=== PATIENT | female | born 1980 | race Caucasian/White ===

== ENCOUNTER 2016-04-25 07:37 | Emergency (ER) | payer BC, OTHER ==
[2016-04-25] MEDS ORDERED: NORMAL SALINE 1000 ML 1,000 ML IV ONE (08:48)
[2016-04-25 08:50] LABS: APPEARANCE,URINE SLIGHTLY-CLOUDY; BILIRUBIN,URINE NEGATIVE (NEGATIVE); GLUCOSE, URINE NEGATIVE (NEGATIVE); KETONES,URINE TRACE mg/dL (NEGATIVE); LEUKOCYTE ESTERASE,URINE NEGATIVE (NEGATIVE); NITRITE,URINE NEGATIVE (NEGATIVE); PROTEIN,URINE NEGATIVE (NEGATIVE); URINE SPECIFIC GRAVITY 1.015; UROBILINOGEN,URINE NEGATIVE mg/dL (<2.0)
[2016-04-25 09:06] LABS: ABSOLUTE BASOPHILS # (AUTO) 0.1 10^3/uL (0.0-0.2); ABSOLUTE EOSINOPHILS # (AUTO) 0.2 10^3/uL (0.0-0.6); ABSOLUTE MONOCYTES (AUTO) 0.5 10^3/uL (0.1-1.4); ABSOLUTE NEUT (AUTO) 6.7 10^3/uL (1.7-8.2); BASOPHILS % (AUTO) 0.6 % (0-2); EOSINOPHILS % (AUTO) 2.5 % (0-6); HEMATOCRIT 43.3 % (36.0-47.0); HEMOGLOBIN 14.7 g/dL (12.0-15.5); HGB HCT DIFFERENCE 0.8; LYMPHOCYTES % (AUTO) 20.7 % (13-45); MEAN CORPUSCULAR HEMOGLOBIN 29.4 pg (27.0-33.4); MEAN CORPUSCULAR HGB CONC 34.1 g/dL (32.0-36.0); MEAN CORPUSCULAR VOLUME 87 fl (80-97); MONOCYTES % (AUTO) 5.6 % (3-13); RED BLOOD COUNT 5.01 10^6/uL (3.72-5.28); RED CELL DISTRIBUTION WIDTH 14.3 % (11.5-14.0); SEGMENTED NEUTROPHILS % (AUTO) 70.6 % (42-78); WHITE BLOOD COUNT 9.4 10^3/uL (4.0-10.5)
[2016-04-25 09:31] LABS: ALANINE AMINOTRANSFERASE 53 U/L (9-52); ALBUMIN 4.4 g/dL (3.5-5.0); ALKALINE PHOSPHATASE 82 U/L (38-126); ANION GAP 13 (5-19); ASPARTATE AMINO TRANSFERASE 33 U/L (14-36); BILIRUBIN,TOTAL 0.6 mg/dL (0.2-1.3); BLOOD UREA NITROGEN 7 mg/dL (7-20); CALCIUM 9.6 mg/dL (8.4-10.2); CARBON DIOXIDE 23 mmol/L (22-30); CHLORIDE 104 mmol/L (98-107); CREATININE RESULT 0.59 mg/dL (0.52-1.25); GLUCOSE 95 mg/dL (75-110); LIPASE 201.9 U/L (23-300); POTASSIUM 4.2 mmol/L (3.6-5.0); TOTAL PROTEIN 7.5 g/dL (6.3-8.2)
--- NOTE | 2016-04-25 12:15 | ER Document Report ---
ED General - General Chief Complaint: Vag Bleeding, +preg <12wks Stated Complaint: BLEEDING TRAVEL OUTSIDE OF THE [place] IN LAST 30 DAYS: No - HPI Patient complains to provider of: vaginal bleeding Notes: Patient coming in for evaluation of vaginal bleeding. Patient is currently undergoing infertility treatment at [facility]. States that she's had miscarriages in the past. Patient denies any vaginal trauma sexual intercourse or any trauma. Patient states bleeding has gone through proximal 2 pads today. Patient does state that she had is having some abdominal cramping feeling like she is not to start her period. Denies any fevers chills nausea vomiting diarrhea. - Related Data Allergies/Adverse Reactions: diazepam [From Valium] Allergy (Mild, Verified 04/25/16 07:43) morphine [Morphine] Allergy (Unknown, Verified 04/25/16 07:43) naproxen [Naproxen] Allergy (Unknown, Verified 04/25/16 07:43) acetaminophen [From Percocet] Allergy (Verified 04/25/16 07:43) hydromorphone [From Dilaudid] Allergy (Verified 04/25/16 07:43) oxycodone [From Percocet] Allergy (Verified 04/25/16 07:43) Past Medical History - Social History Smoking Status: Never Smoker Chew tobacco use (# tins/day): No Frequency of alcohol use: None Drug Abuse: None Family History: Reviewed & Not Pertinent Patient has suicidal ideation: No Patient has homicidal ideation: No Pulmonary Medical History: Reports: Hx Bronchitis Neurological Medical History: Reports: Hx Migraine Renal/ Medical History: Reports: Hx Ovarian Cysts - Polycystic ovary syndrome. Denies: Hx Peritoneal Dialysis Psychiatric Medical History: Reports: Hx Anxiety, Hx Depression Past Surgical History: Reports: Hx Cholecystectomy, Hx Gynecologic Surgery - D& C x2, laproscopic, Hx Orthopedic Surgery - Arthroscopy right knee - Immunizations Immunizations up to date: Yes Hx Diphtheria, Pertussis, Tetanus Vaccination: Yes - 2005 Review of Systems - Review of Systems Constitutional: No symptoms reported EENT: No symptoms reported Cardiovascular: No symptoms reported Respiratory: No symptoms reported Gastrointestinal: No symptoms reported Genitourinary: No symptoms reported Female Genitourinary: Vaginal bleeding Musculoskeletal: No symptoms reported Skin: No symptoms reported Hematologic/Lymphatic: No symptoms reported Neurological/Psychological: No symptoms reported -: Yes All other systems reviewed and negative Physical Exam - Vital signs Vitals: Temp Pulse Resp BP Pulse Ox 97.5 F 120 H 20 139/91 H 99 04/25/16 07:42 04/25/16 07:42 04/25/16 07:42 04/25/16 07:42 04/25/16 07:42 Interpretation: Normal - General General appearance: Appears well, Alert - HEENT Head: Normocephalic, Atraumatic Eyes: Normal Pupils: PERRL - Respiratory Respiratory status: No respiratory distress Chest status: Nontender Breath sounds: Normal Chest palpation: Normal - Cardiovascular Rhythm: Regular Heart sounds: Normal auscultation Murmur: No - Abdominal Inspection: Normal Distension: No distension Bowel sounds: Normal Tenderness: Nontender Organomegaly: No organomegaly - Back Back: Normal, Nontender - Extremities General upper extremity: Normal inspection, Nontender, Normal color, Normal ROM , Normal temperature General lower extremity: Normal inspection, Nontender, Normal color, Normal ROM , Normal temperature, Normal weight bearing. No: Cristopher's sign - Neurological Neuro grossly intact: Yes Cognition: Normal Orientation: AAOx4 [place] Coma Scale Eye Opening: Spontaneous [place] Coma Scale Verbal: Oriented [place] Coma Scale Motor: Obeys Commands Gavino Coma Scale Total: 15 Speech: Normal Motor strength normal: LUE, RUE, LLE, RLE Sensory: Normal - Psychological Associated symptoms: Normal affect, Normal mood - Skin Skin Temperature: Warm Skin Moisture: Dry Skin Color: Normal Course - Re-evaluation Re-evalutation: 04/25/16 14:28 Does not reveal any signs of an IUP. Also beta-hCG is 111. Patient states that hCG proximal a 4 days ago was 44 or 77. I did discuss with [facility] at [facility] at [facility]. Dr. Ferrara states that that is time patient can be discharged home that she will follow-up with the patient for an earlier follow- up appointment at agreeable later on today. Patient was given Reglan due to being Rh- - Vital Signs Vital signs: Temp Pulse Resp BP Pulse Ox 98.6 F 88 16 120/80 100 04/25/16 12:41 04/25/16 12:41 04/25/16 12:41 04/25/16 12:41 04/25/16 12:41 - Laboratory Result Diagrams: 04/25/16 08:53 04/25/16 08:53 Laboratory results interpreted by me: 04/25/16 04/25/16 04/25/16 08:20 08:53 08:53 RDW 14.3 H ALT 53 H Beta HCG, Quant 111.08 H Urine Ketones TRACE H Urine Blood MODERATE H Discharge - Discharge Clinical Impression: Threatened in early Condition: Good Disposition: HOME, SELF-CARE Instructions: Repeat Blood Test ([facility]), Threatened Miscarriage ([facility]), Rhogam ( [facility]) Additional Instructions: At this time your beta hCG level is 111. I discussed her case with your [facility] clinic in [place]. They will call you to set up a follow-up appointment. Please observe light activity for the next few days. Nothing inside the vagina no toys no sex no tampons Referrals: DEJAN BORDEN MD [Primary Care Provider] - Follow up as needed
[2016-04-25 12:44] VITALS: BP 120/80
== END 2016-04-25 12:43 | disposition home or self-care (01) ==
LOC: ER 07:37
DX: O20.0 Threatened abortion (principal); Z3A.00 Weeks of gestation of pregnancy not specified; Z88.6 Allergy status to analgesic agent
CPT/HCPCS: 99284; 86900; 86901; 36415; 86850; 84702; 83690; 85025; 80053; 81001; 76817; 93976; J2790; J7030

== ENCOUNTER 2016-05-08 16:29 | Emergency (ER) | payer BC, OTHER ==
--- NOTE | 2016-05-08 16:39 | ER Document Report ---
ED Medical Screen (RME) - General Stated Complaint: POSSIBLE ALLERGIC REACTION Notes: Monday she received methotrexate IM for ectopic left jaw pain, left shoulder, nausea, vomiting and pelvic cramping, vaginal bleeding. she had taken benadryl on monday for her symptoms including difficulty breathing which resolved her symptoms. NAD, airway patent, talking normally, nontoxic appearing I have greeted and performed a rapid initial assessment of this patient. A comprehensive ED assessment and evaluation of the patient, analysis of test results and completion of the medical decision making process will be conducted by additional ED providers. TRAVEL OUTSIDE OF THE [place] IN LAST 30 DAYS: No - Related Data Allergies/Adverse Reactions: diazepam [From Valium] Allergy (Mild, Verified 05/03/16 17:36) morphine [Morphine] Allergy (Unknown, Verified 05/03/16 17:36) naproxen [Naproxen] Allergy (Unknown, Verified 05/03/16 17:36) acetaminophen [From Percocet] Allergy (Verified 05/03/16 17:36) hydromorphone [From Dilaudid] Allergy (Verified 05/03/16 17:36) oxycodone [From Percocet] Allergy (Verified 05/03/16 17:36) Past Medical History Pulmonary Medical History: Reports: Hx Bronchitis Neurological Medical History: Reports: Hx Migraine Renal/ Medical History: Reports: Hx Ovarian Cysts - Polycystic ovary syndrome. Denies: Hx Peritoneal Dialysis Psychiatric Medical History: Reports: Hx Anxiety, Hx Depression Past Surgical History: Reports: Hx Cholecystectomy, Hx Gynecologic Surgery - D& C x2, laproscopic, Hx Orthopedic Surgery - Arthroscopy right knee - Immunizations Immunizations up to date: Yes Hx Diphtheria, Pertussis, Tetanus Vaccination: Yes - 2005 Physical Exam - Vital signs Vitals: Temp Pulse Resp BP Pulse Ox 98.0 F 103 H 16 132/90 H 99 05/08/16 16:34 05/08/16 16:34 05/08/16 16:34 05/08/16 16:34 05/08/16 16:34 Course - Vital Signs Vital signs: Temp Pulse Resp BP Pulse Ox 98.0 F 103 H 16 132/90 H 99 05/08/16 16:34 05/08/16 16:34 05/08/16 16:34 05/08/16 16:34 05/08/16 16:34
[2016-05-08 17:04] LABS: ABSOLUTE BASOPHILS # (AUTO) 0.1 10^3/uL (0.0-0.2); ABSOLUTE EOSINOPHILS # (AUTO) 0.2 10^3/uL (0.0-0.6); ABSOLUTE LYMPHOCYTES (AUTO) 3.1 10^3/uL (0.5-4.7); ABSOLUTE MONOCYTES (AUTO) 0.6 10^3/uL (0.1-1.4); ABSOLUTE NEUT (AUTO) 8.9 10^3/uL (1.7-8.2); BASOPHILS % (AUTO) 0.7 % (0-2); EOSINOPHILS % (AUTO) 1.9 % (0-6); HEMATOCRIT 41.4 % (36.0-47.0); HEMOGLOBIN 14.1 g/dL (12.0-15.5); HGB HCT DIFFERENCE 0.9; LYMPHOCYTES % (AUTO) 23.7 % (13-45); MEAN CORPUSCULAR HEMOGLOBIN 29.4 pg (27.0-33.4); MEAN CORPUSCULAR VOLUME 87 fl (80-97); MONOCYTES % (AUTO) 4.6 % (3-13); RED BLOOD COUNT 4.79 10^6/uL (3.72-5.28); SEGMENTED NEUTROPHILS % (AUTO) 69.1 % (42-78); WHITE BLOOD COUNT 12.9 10^3/uL (4.0-10.5)
[2016-05-08 17:09] LABS: APPEARANCE,URINE CLEAR; BILIRUBIN,URINE NEGATIVE (NEGATIVE); GLUCOSE, URINE NEGATIVE (NEGATIVE); KETONES,URINE NEGATIVE (NEGATIVE); LEUKOCYTE ESTERASE,URINE NEGATIVE (NEGATIVE); NITRITE,URINE NEGATIVE (NEGATIVE); PROTEIN,URINE NEGATIVE (NEGATIVE); URINE SPECIFIC GRAVITY 1.006; UROBILINOGEN,URINE NEGATIVE mg/dL (<2.0)
[2016-05-08 17:28] LABS: ALANINE AMINOTRANSFERASE 64 U/L (9-52); ALBUMIN 4.3 g/dL (3.5-5.0); ALKALINE PHOSPHATASE 80 U/L (38-126); ANION GAP 15 (5-19); ASPARTATE AMINO TRANSFERASE 33 U/L (14-36); BILIRUBIN,TOTAL 0.6 mg/dL (0.2-1.3); BLOOD UREA NITROGEN 7 mg/dL (7-20); CALCIUM 9.7 mg/dL (8.4-10.2); CARBON DIOXIDE 28 mmol/L (22-30); CHLORIDE 103 mmol/L (98-107); CREATININE RESULT 0.65 mg/dL (0.52-1.25); GLUCOSE 81 mg/dL (75-110); POTASSIUM 3.7 mmol/L (3.6-5.0); SODIUM 145.5 mmol/L (137-145); TOTAL PROTEIN 7.4 g/dL (6.3-8.2)
[2016-05-08] MEDS ORDERED: ONDANSETRON ODT 4 MG TAB (6 TAB/DSPK) PO PRN (18:36)
--- NOTE | 2016-05-08 18:40 | ER Document Report ---
ED General - General Chief Complaint: Abdominal Cramping Stated Complaint: POSSIBLE ALLERGIC REACTION Notes: Patient is a 35-year-old female recently diagnosed with ectopic and given a dose of methotrexate 3 days ago who presents with nausea, a metallic taste in her mouth, diffuse arthralgias, and intermittent vomiting. States symptoms started approximately 1-2 hours after receiving methotrexate. She states that she has felt a tightness in her throat but has not had shortness of breath. No rash. No syncope. She took Benadryl with moderate improvement of her symptoms. Nothing worsens her symptoms. States she did not have similar symptoms when she received methotrexate for a prior ectopic approximately 12 years ago. Her primary care doctor instructed her to come to the emergency department today when she contacted them regarding her symptoms. TRAVEL OUTSIDE OF THE [place] IN LAST 30 DAYS: No - Related Data Allergies/Adverse Reactions: diazepam [From Valium] Allergy (Mild, Verified 05/03/16 17:36) morphine [Morphine] Allergy (Unknown, Verified 05/03/16 17:36) naproxen [Naproxen] Allergy (Unknown, Verified 05/03/16 17:36) acetaminophen [From Percocet] Allergy (Verified 05/03/16 17:36) hydromorphone [From Dilaudid] Allergy (Verified 05/03/16 17:36) oxycodone [From Percocet] Allergy (Verified 05/03/16 17:36) Past Medical History - General Information source: Patient - Social History Smoking Status: Never Smoker Chew tobacco use (# tins/day): No Frequency of alcohol use: None Drug Abuse: None Lives with: Spouse/Significant other Family History: Reviewed & Not Pertinent Patient has suicidal ideation: No Patient has homicidal ideation: No Pulmonary Medical History: Reports: Hx Bronchitis Neurological Medical History: Reports: Hx Migraine Renal/ Medical History: Reports: Hx Ovarian Cysts - Polycystic ovary syndrome. Denies: Hx Peritoneal Dialysis Psychiatric Medical History: Reports: Hx Anxiety, Hx Depression Past Surgical History: Reports: Hx Cholecystectomy, Hx Gynecologic Surgery - D& C x2, laproscopic, Hx Orthopedic Surgery - Arthroscopy right knee - Immunizations Immunizations up to date: Yes Hx Diphtheria, Pertussis, Tetanus Vaccination: Yes - 2005 Review of Systems - Review of Systems Notes: Constitutional: Negative for fever. HENT: Negative for sore throat. Eyes: Negative for visual changes. Cardiovascular: Negative for chest pain. Respiratory: Negative for shortness of breath. Gastrointestinal: Negative for abdominal pain, positive for vomiting Genitourinary: Negative for dysuria. Musculoskeletal: Negative for back pain. Skin: Negative for rash. Neurological: Negative for headaches, weakness or numbness. 10 point ROS negative except as marked above and in HPI. Physical Exam - Vital signs Vitals: Temp Pulse Resp BP Pulse Ox 98.0 F 103 H 16 132/90 H 99 05/08/16 16:34 05/08/16 16:34 05/08/16 16:34 05/08/16 16:34 05/08/16 16:34 Interpretation: Tachycardic Notes: PHYSICAL EXAMINATION: GENERAL: Well-appearing, well-nourished and in no acute distress. HEAD: Atraumatic, normocephalic. EYES: Pupils equal round and reactive to light, extraocular movements intact, sclera anicteric, conjunctiva are normal. ENT: nares patent, oropharynx clear without exudates. Moist mucous membranes. NECK: Normal range of motion, supple without lymphadenopathy LUNGS: Breath sounds clear to auscultation bilaterally and equal. No wheezes rales or rhonchi. HEART: Regular rate and rhythm without murmurs ABDOMEN: Soft, nontender, normoactive bowel sounds. No guarding, no rebound. No masses appreciated. EXTREMITIES: Normal range of motion, no pitting or edema. No cyanosis. NEUROLOGICAL: No focal neurological deficits. Moves all extremities spontaneously and on command. PSYCH: Normal mood, normal affect. SKIN: Warm, Dry, normal turgor, no rashes or lesions noted. Course - Re-evaluation Re-evalutation: 05/08/16 18:38 Patient presents with multiple symptoms which fit most consistently with a side effects of methotrexate. She does complain of a metallic taste in her mouth which induces significant nausea, consistent with a known side effect of methotrexate. Patient does not have any hives, stridor, wheezing, or respiratory difficulty to suggest an anaphylactic or allergic reaction. Her symptoms have been ongoing for several days. Will prescribe Zofran for nausea and recommend close follow-up. At this time will discharge with return precautions and follow-up recommendations. Verbal discharge instructions given a the bedside and opportunity for questions given. Medication warnings reviewed. Patient is in agreement with this plan and has verbalized understanding of return precautions and the need for primary care follow-up in the next 24-72 hours. - Vital Signs Vital signs: Temp Pulse Resp BP Pulse Ox 97.8 F 104 H 16 123/89 H 98 05/08/16 18:42 05/08/16 18:42 05/08/16 18:42 05/08/16 18:42 05/08/16 18:42 - Laboratory Result Diagrams: 05/08/16 16:45 05/08/16 16:45 Laboratory results interpreted by me: 05/08/16 05/08/16 05/08/16 16:45 16:45 16:45 WBC 12.9 H Absolute Neutrophils 8.9 H Sodium 145.5 H ALT 64 H Beta HCG, Quant 72.77 H Urine Blood LARGE H Discharge - Discharge Clinical Impression: Medication side effect Condition: Good Disposition: HOME, SELF-CARE Additional Instructions: Please take the Zofran as prescribed as needed for nausea. Your symptoms should resolve in the next several days as the methotrexate clears from your system. Please follow closely with your primary doctor. Return for worsening abdominal pain, inability to tolerate fluids despite Zofran, difficulty breathing, passing out, or any other symptoms that are worrisome to you. Referrals: DEJAN BORDEN MD [Primary Care Provider] - Follow up as needed
[2016-05-08 18:45] VITALS: BP 123/89
== END 2016-05-08 18:44 | disposition home or self-care (01) ==
LOC: ER 16:29
DX: R11.0 Nausea (principal); R43.9 Unspecified disturbances of smell and taste; M25.50 Pain in unspecified joint; T45.1X5A Adverse effect of antineoplastic and immunosuppressive drugs, initial encounter; Z88.6 Allergy status to analgesic agent; Z90.49 Acquired absence of other specified parts of digestive tract
CPT/HCPCS: 36415; 80053; 81001; 84702; 85025; 99283

== ENCOUNTER 2016-07-13 17:48 | Emergency (ER) | payer BC, OTHER ==
[2016-07-13 18:07] VITALS: BP 126/83
[2016-07-13] MEDS ORDERED: LORAZEPAM 1 MG TABLET PO ONE (18:27)
[2016-07-13] MEDS ORDERED: TRAMADOL HCL 50 MG TABLET PO ONE (18:29)
--- NOTE | 2016-07-13 18:38 | ER Document Report ---
ED Medical Screen (RME) - General Chief Complaint: Back Pain Stated Complaint: BACK PAIN Time Seen by Provider: 07/13/16 18:26 Notes: Patient was sitting watching TV about 2 or 3 hours ago when she started having mid anterior chest, sharp, substernal pain that went up into her throat and into her back around her bra line in the lower thoracic back area. This is something that is happening to her frequently in the past, at least 10 or 12 or more times. She has taken 600 mg of Motrin and also took some Ativan, but has not gotten any relief. Denies any nausea or vomiting or upset stomach. Denies any cough or cold or chest congestion. Has not had any fevers. Does not recall any unusual activity or injury or heavy lifting, only about a 20 pound puppy. Patient suffers from anxiety and that is how she happens to have Ativan, but does not think that that is playing any role in her current symptoms. TRAVEL OUTSIDE OF THE [place] IN LAST 30 DAYS: No - Related Data Allergies/Adverse Reactions: diazepam [From Valium] Allergy (Mild, Verified 07/13/16 18:03) morphine [Morphine] Allergy (Unknown, Verified 07/13/16 18:03) naproxen [Naproxen] Allergy (Unknown, Verified 07/13/16 18:03) acetaminophen [From Percocet] Allergy (Verified 07/13/16 18:03) hydromorphone [From Dilaudid] Allergy (Verified 07/13/16 18:03) oxycodone [From Percocet] Allergy (Verified 07/13/16 18:03) Past Medical History - Social History Frequency of alcohol use: None Drug Abuse: None Pulmonary Medical History: Reports: Hx Bronchitis Neurological Medical History: Reports: Hx Migraine Renal/ Medical History: Reports: Hx Ovarian Cysts - Polycystic ovary syndrome. Denies: Hx Peritoneal Dialysis Psychiatric Medical History: Reports: Hx Anxiety, Hx Depression Past Surgical History: Reports: Hx Cholecystectomy, Hx Gynecologic Surgery - D& C x2, laproscopic, Hx Orthopedic Surgery - Arthroscopy right knee - Immunizations Immunizations up to date: Yes Hx Diphtheria, Pertussis, Tetanus Vaccination: Yes - 2005 Physical Exam - Vital signs Vitals: Temp Pulse Resp BP Pulse Ox 98.0 F 91 18 126/83 H 98 07/13/16 18:04 07/13/16 18:04 07/13/16 18:04 07/13/16 18:04 07/13/16 18:04 Course - Vital Signs Vital signs: Temp Pulse Resp BP Pulse Ox 98.0 F 91 18 126/83 H 98 07/13/16 18:04 07/13/16 18:04 07/13/16 18:04 07/13/16 18:04 07/13/16 18:04
[2016-07-13 18:57] LABS: ABSOLUTE BASOPHILS # (AUTO) 0.1 10^3/uL (0.0-0.2); ABSOLUTE EOSINOPHILS # (AUTO) 0.4 10^3/uL (0.0-0.6); ABSOLUTE LYMPHOCYTES (AUTO) 2.9 10^3/uL (0.5-4.7); ABSOLUTE MONOCYTES (AUTO) 0.9 10^3/uL (0.1-1.4); ABSOLUTE NEUT (AUTO) 7.1 10^3/uL (1.7-8.2); BASOPHILS % (AUTO) 0.8 % (0-2); EOSINOPHILS % (AUTO) 3.4 % (0-6); HEMATOCRIT 46.6 % (36.0-47.0); HEMOGLOBIN 15.5 g/dL (12.0-15.5); HGB HCT DIFFERENCE -0.1; LYMPHOCYTES % (AUTO) 25.6 % (13-45); MEAN CORPUSCULAR HEMOGLOBIN 28.4 pg (27.0-33.4); MEAN CORPUSCULAR HGB CONC 33.3 g/dL (32.0-36.0); MEAN CORPUSCULAR VOLUME 85 fl (80-97); MONOCYTES % (AUTO) 7.6 % (3-13); RED BLOOD COUNT 5.46 10^6/uL (3.72-5.28); RED CELL DISTRIBUTION WIDTH 12.9 % (11.5-14.0); SEGMENTED NEUTROPHILS % (AUTO) 62.6 % (42-78); WHITE BLOOD COUNT 11.3 10^3/uL (4.0-10.5)
--- NOTE | 2016-07-13 19:07 | RADIOLOGY REPORT (SQ) ---
EXAM DESCRIPTION: CHEST PA/LAT COMPLETED DATE/TIME: 07/13/2016 6:54 pm REASON FOR STUDY: Pain in mid substernal chest into mid lower thorac COMPARISON: 10/23/2014 EXAM PARAMETERS: NUMBER OF VIEWS: two views TECHNIQUE: Digital Frontal and Lateral radiographic views of the chest acquired. RADIATION DOSE: NA LIMITATIONS: none FINDINGS: LUNGS AND PLEURA: No acute opacities, masses or pneumothorax. Similar chronic scarring in the right lung base. No pleural effusion. MEDIASTINUM AND HILAR STRUCTURES: No masses or contour abnormalities. HEART AND VASCULAR STRUCTURES: Heart normal size. No evidence for failure. BONES: No acute findings. HARDWARE: None in the chest. OTHER: No other significant finding. IMPRESSION: No acute finding. TECHNICAL DOCUMENTATION: JOB ID: [id number] [employer]- All Rights Reserved
[2016-07-13 19:12] LABS: ALANINE AMINOTRANSFERASE 64 U/L (9-52); ALBUMIN 4.5 g/dL (3.5-5.0); ALKALINE PHOSPHATASE 88 U/L (38-126); ANION GAP 12 (5-19); ASPARTATE AMINO TRANSFERASE 36 U/L (14-36); BILIRUBIN,DIRECT 0.4 mg/dL (0.0-0.4); BILIRUBIN,TOTAL 0.6 mg/dL (0.2-1.3); BLOOD UREA NITROGEN 12 mg/dL (7-20); CALCIUM 10.4 mg/dL (8.4-10.2); CARBON DIOXIDE 24 mmol/L (22-30); CHLORIDE 104 mmol/L (98-107); CREATINE KINASE 70 U/L (30-135); CREATININE RESULT 0.67 mg/dL (0.52-1.25); GLUCOSE 84 mg/dL (75-110); POTASSIUM 4.2 mmol/L (3.6-5.0); SODIUM 139.5 mmol/L (137-145)
[2016-07-13 19:26] LABS: TROPONIN I < 0.012 ng/mL
--- NOTE | 2016-07-13 19:33 | ER Document Report ---
ED General - General Chief Complaint: Back Pain Stated Complaint: BACK PAIN Time Seen by Provider: 07/13/16 18:26 Notes: Patient is a 35-year-old female with past medical history of chronic thoracic back pain who presents with an exacerbation of this pain. States that she typically gets a 5-6 times a month after returning home from work. The patient is apparently been working mostly off her couch, sitting in an unusual, poor posture position. States tonight she spontaneously developed an acute onset of mid perithoracic spinal musculature pain which she described as a constant dull , aching pain. She took ibuprofen and applied heat which usually resolve this pain but it did not work. Moving worsens the pain. She denies any associated bowel or bladder incontinence, urinary retention, weakness, numbness, or difficulty with ambulation. She has not seen her primary care doctor regarding today's concerns. She states the only thing that is different about rodri's episode is that it did not resolve with NSAIDs and heat. TRAVEL OUTSIDE OF THE [place] IN LAST 30 DAYS: No - Related Data Allergies/Adverse Reactions: diazepam [From Valium] Allergy (Mild, Verified 07/13/16 18:03) morphine [Morphine] Allergy (Unknown, Verified 07/13/16 18:03) naproxen [Naproxen] Allergy (Unknown, Verified 07/13/16 18:03) acetaminophen [From Percocet] Allergy (Verified 07/13/16 18:03) hydromorphone [From Dilaudid] Allergy (Verified 07/13/16 18:03) oxycodone [From Percocet] Allergy (Verified 07/13/16 18:03) Past Medical History - General Information source: Patient - Social History Smoking Status: Never Smoker Frequency of alcohol use: None Drug Abuse: None Lives with: Spouse/Significant other Family History: Reviewed & Not Pertinent Patient has suicidal ideation: No Patient has homicidal ideation: No Pulmonary Medical History: Reports: Hx Bronchitis Neurological Medical History: Reports: Hx Migraine Renal/ Medical History: Reports: Hx Ovarian Cysts - Polycystic ovary syndrome. Denies: Hx Peritoneal Dialysis Psychiatric Medical History: Reports: Hx Anxiety, Hx Depression Past Surgical History: Reports: Hx Cholecystectomy, Hx Gynecologic Surgery - D& C x2, laproscopic, Hx Orthopedic Surgery - Arthroscopy right knee - Immunizations Immunizations up to date: Yes Hx Diphtheria, Pertussis, Tetanus Vaccination: Yes - 2005 Review of Systems - Review of Systems Notes: Constitutional: Negative for fever. HENT: Negative for sore throat. Eyes: Negative for visual changes. Cardiovascular: Negative for chest pain. Respiratory: Negative for shortness of breath. Gastrointestinal: Negative for abdominal pain, vomiting or diarrhea. Genitourinary: Negative for dysuria. Musculoskeletal: Positive for back pain. Skin: Negative for rash. Neurological: Negative for headaches, weakness or numbness. 10 point ROS negative except as marked above and in HPI. Physical Exam - Vital signs Vitals: Temp Pulse Resp BP Pulse Ox 98.0 F 91 18 126/83 H 98 07/13/16 18:04 07/13/16 18:04 07/13/16 18:04 07/13/16 18:04 07/13/16 18:04 Interpretation: Normal Notes: PHYSICAL EXAMINATION: GENERAL: Well-appearing, well-nourished and in no acute distress. HEAD: Atraumatic, normocephalic. EYES: Pupils equal round and reactive to light, extraocular movements intact, sclera anicteric, conjunctiva are normal. ENT: nares patent, oropharynx clear without exudates. Moist mucous membranes. NECK: Normal range of motion, supple without lymphadenopathy LUNGS: Breath sounds clear to auscultation bilaterally and equal. No wheezes rales or rhonchi. HEART: Regular rate and rhythm without murmurs ABDOMEN: Soft, nontender, normoactive bowel sounds. No guarding, no rebound. No masses appreciated. Back : No midline spinal tenderness, step-offs or deformities. There is diffuse bilateral parathoracic spinal musculature tenderness on palpation EXTREMITIES: Normal range of motion, no pitting or edema. No cyanosis. NEUROLOGICAL: 5 out of 5 strength both distally and proximally bilateral lower extremities. 2+ patellar reflexes bilaterally. No clonus. Sensation grossly intact in the bilateral lower extremities. Patient is able to ambulate without difficulty. PSYCH: Normal mood, normal affect. SKIN: Warm, Dry, normal turgor, no rashes or lesions noted. Course - Re-evaluation Re-evalutation: 07/13/16 19:27 Presentation of a well appearing patient complaining of acute on chronic back pain. No rapid progression of symptoms, systemic symptoms including fevers, chills, weight loss, history of recent bacterial infection, bilateral symptoms, numbness, weakness, difficulty walking, urinary retention or bowel incontinence , personal history of cancer, immunosuppression, diabetes, known AAA, or history of IV drug use. Exam is without point tenderness over vertebral bodies , pulsatile abdominal mass, and patient has symmetric and intact lower extremity strength, sensation, and reflexes without clonus. 2+ symmetric medial malleolar and dorsalis pedis pulses. Based on history and physical, I have a very low suspicion of a concerning etiology of pain including epidural compression syndrome, spinal infection, transverse myelitis, malignancy, abdominal aortic aneurysm, renal colic, acute lower extremity claudication, neurogenic claudication, ankylosing spondylitis, or other intra-abdominal process. Due to absence of concerning risk factors in history and physical as well as absence of rapidly progressive, severe, or bilateral symptoms, will defer imaging at this point. Patient has repeatedly had similar episodes in the past but they typically resolve more rapidly than today. She has no pleuritic chest pain, she is PERC criteria negative and I do not suspect her symptoms are related to an acute pulmonary embolus, ACS, or aortic dissection. In triage lab and a chest x-ray were obtained based on her complaint pain seems to wrap around her lower rib cages. The labs and the x- ray have been reviewed and are noted to be normal. Plan to manage conservatively with outpatient analgesia, analgesia, and physical therapy. - ibuprofen 600 q 6 - Continue normal daily activities as tolerated by pain - Provide with standard musculoskeletal back pain exercise instructions - Instruct to follow up with primary care provider if symptoms not improving - Provide careful return precautions and concerning symptoms to watch for. - Vital Signs Vital signs: Temp Pulse Resp BP Pulse Ox 98.0 F 91 18 126/83 H 98 07/13/16 18:04 07/13/16 18:04 07/13/16 18:04 07/13/16 18:04 07/13/16 18:04 - Laboratory Result Diagrams: 07/13/16 18:43 07/13/16 18:43 Laboratory results interpreted by me: 07/13/16 07/13/16 18:43 18:43 WBC 11.3 H RBC 5.46 H Calcium 10.4 H ALT 64 H - Diagnostic Test Radiology reviewed: Image reviewed, Reports reviewed Radiology results interpreted by me: 07/13/16 19:30 X-ray: No acute infiltrate or pneumothorax Discharge - Discharge Clinical Impression: Back pain Qualifiers: Back pain location: thoracic back pain Chronicity: acute Back pain laterality: bilateral Qualified Code(s): M54.6 - Pain in thoracic spine Condition: Good Disposition: HOME, SELF-CARE Additional Instructions: You have been seen in the Emergency Department (ED) today for back pain. Your workup and exam have not shown any acute abnormalities and you are likely suffering from muscle strain or possible problems with your discs, but there is no treatment that will fix your symptoms at this time. Please take ibuprofen 600mg every 6 hours and the Flexeril at night. You should also purchase a local lidocaine cream such as "aspercreme with lidocaine" and use per bottle instructions to the affected area. Apply heat to the area as often as you are able. Continue to keep active and avoid prolonged periods of bed rest. Please follow up with your doctor as soon as possible regarding today's ED visit and your back pain. Return to the ED for worsening back pain, fever, weakness or numbness of either leg, or if you develop either (1) an inability to urinate or have bowel movements, or (2) loss of your ability to control your bathroom functions (if you start having "accidents"), or if you develop other new symptoms that concern you.concern you. Prescriptions: Cyclobenzaprine HCl [Flexeril 10 mg Tablet] 10 mg PO QHS PRN #15 tab PRN Reason: Referrals: DEJAN BORDEN MD [Primary Care Provider] - Follow up as needed
[2016-07-13] MEDS ORDERED: KETOROLAC TROMETHAMINE 60 MG/2 ML SDV IM ONE (19:34)
[2016-07-13] MEDS ORDERED: LIDOCAINE 5% (700 MG) TRANSDERMAL ADH..PATCH TP ONE (19:35)
[2016-07-13] MEDS ORDERED: CYCLOBENZAPRINE HCL 10 MG TABLET PO ONE (19:35)
--- NOTE | 2016-07-13 20:05 | EKG REPORT ---
SEVERITY:- NORMAL ECG - SINUS RHYTHM : Confirmed by: Lion Hein MD 13-Jul-2016 20:04:53
== END 2016-07-13 20:04 | disposition home or self-care (01) ==
LOC: ER 17:48
DX: M54.6 Pain in thoracic spine (principal); M54.9 Dorsalgia, unspecified; G89.29 Other chronic pain; Z79.899 Other long term (current) drug therapy
CPT/HCPCS: 36415; 71020; 80053; 82550; 82553; 84484; 85025; 93005; 93010; 99284

== ENCOUNTER 2016-09-03 21:07 | Emergency (ER) | payer BC, OTHER ==
[2016-09-03 21:37] LABS: ABSOLUTE BASOPHILS # (AUTO) 0.1 10^3/uL (0.0-0.2); ABSOLUTE EOSINOPHILS # (AUTO) 0.1 10^3/uL (0.0-0.6); ABSOLUTE LYMPHOCYTES (AUTO) 2.7 10^3/uL (0.5-4.7); ABSOLUTE NEUT (AUTO) 8.8 10^3/uL (1.7-8.2); BASOPHILS % (AUTO) 0.6 % (0-2); EOSINOPHILS % (AUTO) 1.1 % (0-6); HEMATOCRIT 45.5 % (36.0-47.0); HEMOGLOBIN 14.8 g/dL (12.0-15.5); HGB HCT DIFFERENCE -1.1; MEAN CORPUSCULAR HEMOGLOBIN 28.2 pg (27.0-33.4); MEAN CORPUSCULAR HGB CONC 32.4 g/dL (32.0-36.0); MEAN CORPUSCULAR VOLUME 87 fl (80-97); MONOCYTES % (AUTO) 8.1 % (3-13); RED BLOOD COUNT 5.23 10^6/uL (3.72-5.28); RED CELL DISTRIBUTION WIDTH 13.5 % (11.5-14.0); SEGMENTED NEUTROPHILS % (AUTO) 69.2 % (42-78); WHITE BLOOD COUNT 12.7 10^3/uL (4.0-10.5)
[2016-09-03 21:41] LABS: APPEARANCE,URINE SLIGHTLY-CLOUDY; BILIRUBIN,URINE NEGATIVE (NEGATIVE); GLUCOSE, URINE NEGATIVE (NEGATIVE); KETONES,URINE NEGATIVE (NEGATIVE); LEUKOCYTE ESTERASE,URINE TRACE (NEGATIVE); NITRITE,URINE NEGATIVE (NEGATIVE); PROTEIN,URINE NEGATIVE (NEGATIVE); URINE SPECIFIC GRAVITY 1.004; UROBILINOGEN,URINE NEGATIVE mg/dL (<2.0)
[2016-09-03 21:48] LABS: ALANINE AMINOTRANSFERASE 53 U/L (9-52); ALBUMIN 4.4 g/dL (3.5-5.0); ALKALINE PHOSPHATASE 82 U/L (38-126); ANION GAP 12 (5-19); ASPARTATE AMINO TRANSFERASE 27 U/L (14-36); BILIRUBIN,DIRECT 0.4 mg/dL (0.0-0.4); BILIRUBIN,TOTAL 0.6 mg/dL (0.2-1.3); BLOOD UREA NITROGEN 9 mg/dL (7-20); CALCIUM 9.3 mg/dL (8.4-10.2); CARBON DIOXIDE 24 mmol/L (22-30); CHLORIDE 103 mmol/L (98-107); CREATININE RESULT 0.66 mg/dL (0.52-1.25); GLUCOSE 83 mg/dL (75-110); LIPASE 408.7 U/L (23-300); SODIUM 138.8 mmol/L (137-145); TOTAL PROTEIN 7.7 g/dL (6.3-8.2)
--- NOTE | 2016-09-03 22:32 | RADIOLOGY REPORT (SQ) ---
EXAM DESCRIPTION: U/S OB TRANSVAGINAL W/O DOP COMPLETED DATE/TIME: 09/03/2016 10:17 pm REASON FOR STUDY: preg abd pn /h ecotpic COMPARISON: None. TECHNIQUE: Transvaginal static and realtime grayscale images acquired of the pelvis. Additional mayank cted spectral and color Doppler images recorded. All images stored on PACs. [facility]. LIMITATIONS: None. FINDINGS: UTERUS: No visualized intrauterine . RIGHT ADNEXA: Normal ovary with normal vascular flow. No adnexal free fluid. Simple cyst measuring 4.6 cm. LEFT ADNEXA: Normal ovary with normal vascular flow. No adnexal free fluid. Simple cyst measuring 3.1 cm. FREE FLUID: Moderate free fluid. OTHER: No other significant finding. IMPRESSION: NO VISUALIZED INTRA- OR EXTRAUTERINE . BILATERAL OVARIAN CYSTS. MODERATE FREE FLUID. bHCG LEVEL TOO LOW TO EXPECT VISUALIZATION OF . ECTOPIC CANNOT BE EXCLUDED. FOLLOW-UP ULTRASOUND AND SERIAL BHCG LEVELS STRONGLY RECOMMENDED TO ACCURATELY ASSESS STATU S. TECHNICAL DOCUMENTATION: JOB ID: [id number]- All Rights Reserved
--- NOTE | 2016-09-03 23:18 | ER Document Report ---
ED General - General Chief Complaint: OB Problem (<20wks) Stated Complaint: POSSIBLE Time Seen by Provider: 09/03/16 21:59 Notes: Is a 35-year-old female presents with complaint of pain in the left shoulder. She has had no abdominal pain. No vaginal bleeding. She is approximately 4-5 weeks . She had hCG levels done at her doctor yesterday which were 51. She had an ectopic back in April. Because of the shoulder pain her doctor told her to come to the ER to check to make sure she did not have another ectopic. Patient says her left shoulder is chronically of pain. She has a little bit worse today. She again denies abdominal pain. She is Rh-. No other complaints at this time. TRAVEL OUTSIDE OF THE [place] IN LAST 30 DAYS: No - Related Data Allergies/Adverse Reactions: diazepam [From Valium] Allergy (Mild, Verified 07/13/16 18:03) morphine [Morphine] Allergy (Unknown, Verified 07/13/16 18:03) naproxen [Naproxen] Allergy (Unknown, Verified 07/13/16 18:03) acetaminophen [From Percocet] Allergy (Verified 07/13/16 18:03) hydromorphone [From Dilaudid] Allergy (Verified 07/13/16 18:03) oxycodone [From Percocet] Allergy (Verified 07/13/16 18:03) Past Medical History - General Last Menstrual Period: 08/02/2016 - Social History Smoking Status: Former Smoker Chew tobacco use (# tins/day): No Frequency of alcohol use: Rare Drug Abuse: None Family History: Reviewed & Not Pertinent Patient has suicidal ideation: No Patient has homicidal ideation: No Pulmonary Medical History: Reports: Hx Bronchitis Neurological Medical History: Reports: Hx Migraine Renal/ Medical History: Reports: Hx Ovarian Cysts - Polycystic ovary syndrome. Denies: Hx Peritoneal Dialysis Psychiatric Medical History: Reports: Hx Anxiety, Hx Depression Past Surgical History: Reports: Hx Cholecystectomy, Hx Gynecologic Surgery - D& C x2, laproscopic, Hx Orthopedic Surgery - Arthroscopy right knee - Immunizations Immunizations up to date: Yes Hx Diphtheria, Pertussis, Tetanus Vaccination: Yes - 2005 Review of Systems - Review of Systems Notes: My Normal Review Basic REVIEW OF SYSTEMS: CONSTITUTIONAL : Denies fever, chills, or sweats. Denies recent illness. RESPIRATORY: Denies cough, cold, or chest congestion. Denies shortness of breath, difficulty breathing, or wheezing. GASTROINTESTINAL: Denies abdominal pain. Denies nausea, vomiting, or diarrhea. Denies constipation. Last BM: GENITOURINARY: Denies difficulty urinating, painful urination, burning, frequency, or blood in urine. FEMALE GENITOURINARY: Denies vaginal bleeding, abnormal or irregular periods. LMP: . MUSCULOSKELETAL: Some left shoulder pain. SKIN: Denies rash or skin lesions. NEUROLOGICAL: Denies altered mental status or loss of consciousness. Denies headache. Denies weakness or paralysis or loss of use of either side. Denies problems with gait or speech. Denies sensory or motor loss. ALL OTHER SYSTEMS REVIEWED AND NEGATIVE. Physical Exam - Vital signs Vitals: Temp Pulse Resp BP Pulse Ox 98.9 F 117 H 20 135/88 H 100 09/03/16 21:11 09/03/16 21:11 09/03/16 21:11 09/03/16 21:11 09/03/16 21:11 - Notes Notes: General Appearance: Well nourished, alert, cooperative, no acute distress, no obvious discomfort. Well appearing. Vitals: reviewed, See vital signs table. Head: no swelling or tenderness to the head Eyes: PERRL, EOMI, Conjuctiva clear Mouth: No decreasd moisture Abdomen: Normal BS, soft, No rigidity, No reproducible abdominal tenderness to palpation of the abdomen, No guarding, no rebound, no abdominal masses, no organomegaly Extremities: strength 5/5 in all extremities, good pulses in all extremities, some pain with range of motion of left shoulder., no edema. Skin: warm, dry, appropriate color, no rash Neuro: speech clear, oriented x 3, normal affect, responds appropriately to questions. Course - Re-evaluation Re-evalutation: 09/03/16 23:19 Patient's hCG level is only 105. This is doubled from her previous hCG level of 51 two days ago. She sounds cannot see a intrauterine or ectopic . This is expected being the patient is still early in . I informed patient I cannot completely rule out ectopic at this time however it is good news of her hCG level to double since 2 days ago. The ultrasound did read that there is some free fluid in the pelvis. She has absolutely no abdominal pain to palpation of the abdomen therefore I do not suspect that this free fluid is related to an ectopic . Patient has a follow-up appointment already scheduled with her OB doctor on Monday which is days from now. I encouraged her to follow-up with that appointment and have her hCG. Patient is Rh- and therefore she was given RhoGam. Patient strongly encouraged to return to ER immediately if she has pain, any vaginal bleeding, or she feels unwell in any way. Patient agrees with plan will be discharged home. Dictation of this chart was performed using voice recognition software; therefore, there may be some unintended grammatical errors. 09/03/16 23:34 - Vital Signs Vital signs: Temp Pulse Resp BP Pulse Ox 98.3 F 97 18 134/82 H 98 09/03/16 22:32 09/03/16 22:32 09/03/16 22:32 09/03/16 22:32 09/03/16 22:32 - Laboratory Result Diagrams: 09/03/16 21:25 09/03/16 21:25 Laboratory results interpreted by me: 09/03/16 09/03/16 09/03/16 21:15 21:25 21:25 WBC 12.7 H Absolute Neutrophils 8.8 H ALT 53 H Lipase 408.7 H Beta HCG, Quant 105.42 H Ur Leukocyte Esterase TRACE H Discharge - Discharge Clinical Impression: Shoulder pain, left Qualifiers: Chronicity: chronic Qualified Code(s): M25.512 - Pain in left shoulder Qualifiers: Weeks of gestation: less than 8 weeks Qualified Code(s): Z3A.01 - Less than 8 weeks gestation of Condition: Good Disposition: HOME, SELF-CARE Additional Instructions: Your HCG level today was 105. Because you are very early in we can not yet see an intrauterine or extrauterine on ultrasound. It is very important you follow up with your OB physician on Monday for a close follow up appointment and recheck of your HCG level. Because we cannot see the on ultrasound I cannot fully rule out potential ectopic. Therefore, it is very important that you return to the ER immediately if you have any abdominal pain, vaginal bleeding, or feel unwell. Referrals: DEJAN BORDEN MD [Primary Care Provider] - Follow up as needed
[2016-09-03 23:46] VITALS: BP 134/75
== END 2016-09-03 23:45 | disposition home or self-care (01) ==
LOC: ER 21:07
DX: O99.351 Diseases of the nervous system complicating pregnancy, first trimester (principal); G89.29 Other chronic pain; M25.512 Pain in left shoulder; O36.0910 Maternal care for other rhesus isoimmunization, first trimester, not applicable or unspecified; Z3A.01 Less than 8 weeks gestation of pregnancy; Z87.59 Personal history of other complications of pregnancy, childbirth and the puerperium; Z88.5 Allergy status to narcotic agent; Z87.891 Personal history of nicotine dependence
CPT/HCPCS: 99284; 86900; 86901; 36415; 86850; 84702; 83690; 85025; 80053; 81001; 76817; J2790

== ENCOUNTER 2016-10-05 10:09 | Emergency (ER) | payer BC, OTHER ==
--- NOTE | 2016-10-05 10:24 | ER Document Report ---
ED Medical Screen (RME) - General Chief Complaint: Vaginal Bleeding Stated Complaint: ABDOMINAL PAIN/BLEEDING Time Seen by Provider: 10/05/16 10:17 Mode of Arrival: Ambulatory Information source: Patient TRAVEL OUTSIDE OF THE [place] 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 in [place] which confirmed positive IUP at that time - Related Data Allergies/Adverse Reactions: diazepam [From Valium] Allergy (Mild, Verified 10/05/16 10:13) morphine [Morphine] Allergy (Unknown, Verified 10/05/16 10:13) naproxen [Naproxen] Allergy (Unknown, Verified 10/05/16 10:13) acetaminophen [From Percocet] Allergy (Verified 10/05/16 10:13) hydromorphone [From Dilaudid] Allergy (Verified 10/05/16 10:13) oxycodone [From Percocet] Allergy (Verified 10/05/16 10:13) Home Medications: Current Home Medications No Home Medications 10/05/16 [History] Past Medical History - Social History Chew tobacco use (# tins/day): No Frequency of alcohol use: None Drug Abuse: None Pulmonary Medical History: Reports: Hx Bronchitis Neurological Medical History: Reports: Hx Migraine Renal/ Medical History: Reports: Hx Ovarian Cysts - Polycystic ovary syndrome. Denies: Hx Peritoneal Dialysis Psychiatric Medical History: Reports: Hx Anxiety, Hx Depression Past Surgical History: Reports: Hx Cholecystectomy, Hx Gynecologic Surgery - D& C x2, laproscopic, Hx Orthopedic Surgery - Arthroscopy right knee - Immunizations Immunizations up to date: Yes Hx Diphtheria, Pertussis, Tetanus Vaccination: Yes - 2005 Physical Exam - Vital signs Vitals: Temp Pulse Resp BP Pulse Ox 98.4 F 122 H 18 158/88 H 97 10/05/16 10:12 10/05/16 10:12 10/05/16 10:12 10/05/16 10:12 10/05/16 10:12 Course - Vital Signs Vital signs: Temp Pulse Resp BP Pulse Ox 98.4 F 122 H 18 158/88 H 97 10/05/16 10:12 10/05/16 10:12 10/05/16 10:12 10/05/16 10:12 10/05/16 10:12
[2016-10-05 11:32] LABS: ABSOLUTE BASOPHILS # (AUTO) 0.1 10^3/uL (0.0-0.2); ABSOLUTE EOSINOPHILS # (AUTO) 0.2 10^3/uL (0.0-0.6); ABSOLUTE LYMPHOCYTES (AUTO) 1.6 10^3/uL (0.5-4.7); ABSOLUTE MONOCYTES (AUTO) 0.5 10^3/uL (0.1-1.4); ABSOLUTE NEUT (AUTO) 8.5 10^3/uL (1.7-8.2); BASOPHILS % (AUTO) 0.7 % (0-2); EOSINOPHILS % (AUTO) 1.7 % (0-6); HEMATOCRIT 43.6 % (36.0-47.0); HEMOGLOBIN 14.9 g/dL (12.0-15.5); HGB HCT DIFFERENCE 1.1; LYMPHOCYTES % (AUTO) 14.6 % (13-45); MEAN CORPUSCULAR HGB CONC 34.2 g/dL (32.0-36.0); MEAN CORPUSCULAR VOLUME 88 fl (80-97); MONOCYTES % (AUTO) 4.6 % (3-13); RED BLOOD COUNT 4.98 10^6/uL (3.72-5.28); RED CELL DISTRIBUTION WIDTH 14.2 % (11.5-14.0); SEGMENTED NEUTROPHILS % (AUTO) 78.4 % (42-78); WHITE BLOOD COUNT 10.8 10^3/uL (4.0-10.5)
[2016-10-05 11:36] LABS: APPEARANCE,URINE SLIGHTLY-CLOUDY; BILIRUBIN,URINE NEGATIVE (NEGATIVE); GLUCOSE, URINE NEGATIVE (NEGATIVE); KETONES,URINE TRACE mg/dL (NEGATIVE); LEUKOCYTE ESTERASE,URINE TRACE (NEGATIVE); NITRITE,URINE NEGATIVE (NEGATIVE); PROTEIN,URINE NEGATIVE (NEGATIVE); URINE SPECIFIC GRAVITY 1.012; UROBILINOGEN,URINE NEGATIVE mg/dL (<2.0)
[2016-10-05 11:51] LABS: ALANINE AMINOTRANSFERASE 44 U/L (9-52); ALBUMIN 4.1 g/dL (3.5-5.0); ALKALINE PHOSPHATASE 85 U/L (38-126); ANION GAP 9 (5-19); ASPARTATE AMINO TRANSFERASE 26 U/L (14-36); BILIRUBIN,DIRECT 0.3 mg/dL (0.0-0.4); BILIRUBIN,TOTAL 0.5 mg/dL (0.2-1.3); BLOOD UREA NITROGEN 5 mg/dL (7-20); CALCIUM 9.5 mg/dL (8.4-10.2); CARBON DIOXIDE 25 mmol/L (22-30); CHLORIDE 104 mmol/L (98-107); GLUCOSE 88 mg/dL (75-110); POTASSIUM 3.7 mmol/L (3.6-5.0); SODIUM 138.3 mmol/L (137-145); TOTAL PROTEIN 7.7 g/dL (6.3-8.2)
--- NOTE | 2016-10-05 11:53 | ER Document Report ---
ED GI/ - General Mode of Arrival: Ambulatory Information source: Patient TRAVEL OUTSIDE OF THE [place] IN LAST 30 DAYS: No - HPI Patient complains to provider of: Abdominal pain - slight cramping, , Vaginal bleeding Onset: This morning Location: Other Vaginal bleeding (Compared to normal period): Spotting, Passing clots - 1, size of grain of rice Menstrual period history: : 4 Para: 0 Associated symptoms: Other - see above <DARWIN ESTRADA - Last Filed: 10/05/16 11:57> <MADDY DANGELO - Last Filed: 10/05/16 14:11> - General Chief Complaint: Vaginal Bleeding Stated Complaint: ABDOMINAL PAIN/BLEEDING Time Seen by Provider: 10/05/16 10:17 Notes: Patient is a 35 year old female who presents to the ED with complaints of vaginal bleeding that started this morning. Patient is approximately 9 weeks . She is . 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 This morning patient states when she woke up and went to the restroom, she wiped and there was blood and a clot the size of a grain of rice on the toilet paper. Patient states now the bleeding is a brownish color and minimal spotting. she is having some mild abdominal cramping but she is unsure if it if is related to her anxiety and stress. Patient was exactly 8 week on her ultrasound last monday. She states last time she has sharp pain in her right lower quadrant but that she did have a 4.3 m cyst on her right ovary that was shown on the ultrasound she had last week. Patient is taking and penicillin for a possible tooth infection. (DARWIN ESTRADA) - Related Data Allergies/Adverse Reactions: diazepam [From Valium] Allergy (Mild, Verified 10/05/16 10:13) morphine [Morphine] Allergy (Unknown, Verified 10/05/16 10:13) naproxen [Naproxen] Allergy (Unknown, Verified 10/05/16 10:13) acetaminophen [From Percocet] Allergy (Verified 10/05/16 10:13) hydromorphone [From Dilaudid] Allergy (Verified 10/05/16 10:13) oxycodone [From Percocet] Allergy (Verified 10/05/16 10:13) Home Medications: Current Home Medications No Home Medications 10/05/16 [History] Past Medical History - General Information source: Patient - Social History Smoking Status: Never Smoker Chew tobacco use (# tins/day): No Frequency of alcohol use: None Drug Abuse: None Family History: Reviewed & Not Pertinent Pulmonary Medical History: Reports: Hx Bronchitis Neurological Medical History: Reports: Hx Migraine Renal/ Medical History: Reports: Hx Ovarian Cysts - Polycystic ovary syndrome. Denies: Hx Peritoneal Dialysis Psychiatric Medical History: Reports: Hx Anxiety, Hx Depression Past Surgical History: Reports: Hx Cholecystectomy, Hx Gynecologic Surgery - D& C x2, laproscopic, Hx Orthopedic Surgery - Arthroscopy right knee - Immunizations Immunizations up to date: Yes Hx Diphtheria, Pertussis, Tetanus Vaccination: Yes - 2005 <DARWIN ESTRADA - Last Filed: 10/05/16 11:57> Review of Systems - Review of Systems Constitutional: No symptoms reported EENT: No symptoms reported Cardiovascular: No symptoms reported Respiratory: No symptoms reported Gastrointestinal: See HPI, Abdominal pain Genitourinary: No symptoms reported Female Genitourinary: See HPI, , Vaginal bleeding Musculoskeletal: No symptoms reported Skin: No symptoms reported Hematologic/Lymphatic: No symptoms reported Neurological/Psychological: No symptoms reported <DARWIN ESTRADA - Last Filed: 10/05/16 11:57> Physical Exam - General General appearance: Appears well, Alert In distress: None - HEENT Head: Normocephalic, Atraumatic Eyes: Normal Extraocular movements intact: Yes Pupils: PERRL - Respiratory Respiratory status: No respiratory distress Breath sounds: Normal - Cardiovascular Rhythm: Regular Heart sounds: Normal auscultation Murmur: No - Abdominal Inspection: Obese Bowel sounds: Normal Tenderness: Nontender - Back Back: Normal, Nontender - Extremities General upper extremity: Normal inspection, Normal ROM General lower extremity: Normal inspection, Normal ROM - Neurological Neuro grossly intact: Yes - Psychological Associated symptoms: Normal affect, Normal mood - Skin Skin Temperature: Warm Skin Moisture: Dry Skin Color: Normal <DARWIN ESTRADA - Last Filed: 10/05/16 11:57> - Vital signs Vitals: Temp Pulse Resp BP Pulse Ox 98.4 F 122 H 18 158/88 H 97 10/05/16 10:12 10/05/16 10:12 10/05/16 10:12 10/05/16 10:12 10/05/16 10:12 Course - Laboratory Result Diagrams: 10/05/16 10:56 10/05/16 10:56 <DARWIN ESTRADA - Last Filed: 10/05/16 11:57> - Laboratory Result Diagrams: 10/05/16 10:56 10/05/16 10:56 <MADDY DANGELO - Last Filed: 10/05/16 14:11> - Vital Signs Vital signs: Temp Pulse Resp BP Pulse Ox 98.4 F 122 H 18 158/88 H 97 10/05/16 10:12 10/05/16 10:12 10/05/16 10:12 10/05/16 10:12 10/05/16 10:12 - Laboratory Laboratory results interpreted by me: 10/05/16 10/05/16 10/05/16 10:56 10:56 11:10 WBC 10.8 H RDW 14.2 H Seg Neutrophils % 78.4 H Absolute Neutrophils 8.5 H BUN 5 L Beta HCG, Quant 19042.00 H Urine Ketones TRACE H Urine Blood SMALL H Ur Leukocyte Esterase TRACE H Urine Ascorbic Acid 40 H Discharge <DARWIN ESTRADA - Last Filed: 10/05/16 11:57> <MADDY DANGELO - Last Filed: 10/05/16 14:11> - Discharge Clinical Impression: Bleeding in early Subchorionic hemorrhage Qualifiers: Fetus number: single or unspecified fetus Trimester: first trimester Qualified Code(s): O41.8X10 - Other specified disorders of amniotic fluid and membranes, first trimester, not applicable or unspecified Condition: Stable Disposition: HOME, SELF-CARE Additional Instructions: Bleeding During Early : You have been evaluated for passing blood while . While we take this symptom very seriously, most women with your degree of bleeding will go on to have a perfectly normal baby. At this time, there is no indication that a miscarriage will occur. (A miscarriage occurs when the fetus is abnormal. There is no medicine or treatment to prevent it.) A more serious cause of bleeding is tubal . An ultrasound can show whether the is in the uterus or in the tube. Sometimes in early , no fetus is seen. In this case, careful follow-up, including repeat blood tests and repeat ultrasound, is necessary. You should rest in bed until the symptoms have resolved. Do not douche or have sex for at least a week, or until OK'd by the doctor. Don't use tampons. Call the doctor or return for re-examination if there is an increase in bleeding or cramping, extreme weakness, fainting, new abdominal pain, fever, or passage of tissue. Your ultrasound shows an 8 week 5 day viable intrauterine . There is a small subchorionic bleed. You should rest today and avoid any strenuous activity for the next several days. Follow-up with your OB doctor as planned next week. RETURN TO THE EMERGENCY ROOM IF ANY NEW OR WORSENING SYMPTOMS. Forms: Return to Work Referrals: ESVIN HENRY MD [Primary Care Provider] - Follow up as needed [place] Attestation: 10/05/16 13:58 I personally performed the services described in the documentation, reviewed and edited the documentation which was dictated to the scribe in my presence, and it accurately records my words and actions. (MADDY DANGELO) Scribe Documentation - Scribe Written by Ralf:: ralf 10/05/2016, 1204 acting as scribe for :: Landon <DARWIN ESTRADA - Last Filed: 10/05/16 11:57>
--- NOTE | 2016-10-05 12:38 | RADIOLOGY REPORT (SQ) ---
EXAM DESCRIPTION: U/S [id number] TRNABD 1GES W/ODOP COMPLETED DATE/TIME: 10/05/2016 12:17 pm REASON FOR STUDY: vaginal bleeding COMPARISON: 09/03/2016 TECHNIQUE: Transabdominal static and realtime grayscale images acquired of the pelvis. Additional se lected spectral and color Doppler images recorded. All images stored on PACs. bHCG: Not available. LIMITATIONS: None. FINDINGS: FETUS: Living intrauterine . EGA: 8 weeks 5 days SHARONDA: 05/12/2017 FHR: 178 beats per minute. SUBCHORIONIC BLEED: Yes SIZE OF BLEED: 1.8 x 2.2 x 1.3 cm. UTERUS: No masses. No anomalies. 10.1 x 6.8 x 6.8 cm. CERVICAL LENGTH: 2.8 cm. Closed. RIGHT ADNEXA: Ovary not seen. No adnexal free fluid. No adnexal masses. LEFT ADNEXA: Ovary not seen. No adnexal free fluid. No adnexal masses. FREE FLUID: None. OTHER: No other significant finding. IMPRESSION: 1. There is a live intrauterine gestation of 8 weeks 5 days with estimated date of deli very of 05/12/2017. 2. There is a subchorionic bleed as described. Trimester of : First - 0 to 13 weeks. TECHNICAL DOCUMENTATION: JOB ID: [id number] [email or web address]- All Rights Reserved
[2016-10-05 14:14] VITALS: BP 120/78
== END 2016-10-05 14:18 | disposition home or self-care (01) ==
LOC: ER 10:09
DX: O41.8X10 Other specified disorders of amniotic fluid and membranes, first trimester, not applicable or unspecified (principal); Z3A.09 9 weeks gestation of pregnancy
CPT/HCPCS: 36415; 76801; 80053; 81001; 84702; 85025; 99284

== ENCOUNTER 2016-11-13 20:56 | Emergency (ER) | payer BC, OTHER ==
[2016-11-13 21:58] LABS: ABSOLUTE BASOPHILS # (AUTO) 0.1 10^3/uL (0.0-0.2); ABSOLUTE EOSINOPHILS # (AUTO) 0.3 10^3/uL (0.0-0.6); ABSOLUTE LYMPHOCYTES (AUTO) 2.2 10^3/uL (0.5-4.7); ABSOLUTE MONOCYTES (AUTO) 0.6 10^3/uL (0.1-1.4); ABSOLUTE NEUT (AUTO) 8.1 10^3/uL (1.7-8.2); BASOPHILS % (AUTO) 0.6 % (0-2); EOSINOPHILS % (AUTO) 2.2 % (0-6); HEMATOCRIT 37.9 % (36.0-47.0); HEMOGLOBIN 13.4 g/dL (12.0-15.5); HGB HCT DIFFERENCE 2.3; MEAN CORPUSCULAR HEMOGLOBIN 30.2 pg (27.0-33.4); MEAN CORPUSCULAR HGB CONC 35.2 g/dL (32.0-36.0); MEAN CORPUSCULAR VOLUME 86 fl (80-97); MONOCYTES % (AUTO) 5.3 % (3-13); RED BLOOD COUNT 4.43 10^6/uL (3.72-5.28); RED CELL DISTRIBUTION WIDTH 13.2 % (11.5-14.0); SEGMENTED NEUTROPHILS % (AUTO) 71.9 % (42-78); WHITE BLOOD COUNT 11.2 10^3/uL (4.0-10.5)
[2016-11-13 22:11] LABS: ALANINE AMINOTRANSFERASE 26 U/L (9-52); ALBUMIN 3.6 g/dL (3.5-5.0); ALKALINE PHOSPHATASE 70 U/L (38-126); ANION GAP 12 (5-19); ASPARTATE AMINO TRANSFERASE 18 U/L (14-36); BILIRUBIN,DIRECT 0.4 mg/dL (0.0-0.4); BILIRUBIN,TOTAL 0.4 mg/dL (0.2-1.3); BLOOD UREA NITROGEN 10 mg/dL (7-20); CALCIUM 9.6 mg/dL (8.4-10.2); CARBON DIOXIDE 21 mmol/L (22-30); CHLORIDE 104 mmol/L (98-107); CREATININE RESULT 0.46 mg/dL (0.52-1.25); GLUCOSE 85 mg/dL (75-110); POTASSIUM 3.6 mmol/L (3.6-5.0); SODIUM 137.1 mmol/L (137-145); TOTAL PROTEIN 6.4 g/dL (6.3-8.2)
[2016-11-13 22:15] LABS: AMORPHOUS SEDIMENT,URINE TRACE /HPF; BILIRUBIN,URINE NEGATIVE (NEGATIVE); GLUCOSE, URINE NEGATIVE (NEGATIVE); KETONES,URINE 80 mg/dL (NEGATIVE); LEUKOCYTE ESTERASE,URINE TRACE (NEGATIVE); NITRITE,URINE NEGATIVE (NEGATIVE); PROTEIN,URINE NEGATIVE (NEGATIVE); URINE SPECIFIC GRAVITY 1.011; UROBILINOGEN,URINE NEGATIVE mg/dL (<2.0)
--- NOTE | 2016-11-13 22:30 | RADIOLOGY REPORT (SQ) ---
EXAM DESCRIPTION: U/S OB 14+ TA/1 GEST W/DOPPLER COMPLETED DATE/TIME: 11/13/2016 10:14 pm REASON FOR STUDY: pelvic pain COMPARISON: None. TECHNIQUE: Limited transabdominal grayscale ultrasound for evaluation of specific requested obstetri sreedhar parameters. LIMITATIONS: None. FINDINGS: CERVICAL LENGTH: 2.8 cm Closed. CHRISTINA: 9.5 cm cm. Live intrauterine with composite ultrasound age of 15 weeks 3 days, EDC 05/04/2017. FHR: 16 0 beats per minute. PRESENTATION: Cephalic. OTHER: Anterior marginal placenta. IMPRESSION: LIMITED OBSTETRICAL ULTRASOUND WITH MEASURED PARAMETERS DELINEATED ABOVE. Trimester of : Second trimester - 13 weeks 1 day to 27 weeks 6 days. TECHNICAL DOCUMENTATION: JOB ID: [id number] [employer]- All Rights Reserved
[2016-11-13 22:39] LABS: APPEARANCE,URINE SLIGHTLY-CLOUDY
[2016-11-13] MEDS ORDERED: NORMAL SALINE 1000 ML 1,000 ML IV ONE (22:44)
--- NOTE | 2016-11-13 23:51 | ER Document Report ---
ED GI/ - General Chief Complaint: Pelvic Pain Stated Complaint: PELVIC PAIN Time Seen by Provider: 11/13/16 22:41 Notes: Patient is a 35-year-old female, at 14-15 weeks gestation that comes emergency department for chief complaint of abdominal cramping. Cramping started just prior to arrival. She denies vaginal bleeding, flank pain, vomiting, fever. She reports she has been moving her bowels normally. She states she is very anxious because of her previous miscarriages and she wants to be checked out. TRAVEL OUTSIDE OF THE [place]. IN LAST 30 DAYS: No - Related Data Allergies/Adverse Reactions: diazepam [From Valium] Allergy (Mild, Verified 11/13/16 21:25) morphine [Morphine] Allergy (Unknown, Verified 11/13/16 21:25) naproxen [Naproxen] Allergy (Unknown, Verified 11/13/16 21:25) acetaminophen [From Percocet] Allergy (Verified 11/13/16 21:25) hydromorphone [From Dilaudid] Allergy (Verified 11/13/16 21:25) oxycodone [From Percocet] Allergy (Verified 11/13/16 21:25) Past Medical History - General Information source: Patient - Social History Smoking Status: Never Smoker Frequency of alcohol use: None Lives with: Family Family History: Reviewed & Not Pertinent Patient has suicidal ideation: No Patient has homicidal ideation: No Pulmonary Medical History: Reports: Hx Bronchitis Neurological Medical History: Reports: Hx Migraine Renal/ Medical History: Reports: Hx Ovarian Cysts - Polycystic ovary syndrome. Denies: Hx Peritoneal Dialysis Psychiatric Medical History: Reports: Hx Anxiety, Hx Depression Past Surgical History: Reports: Hx Cholecystectomy, Hx Gynecologic Surgery - D& C x2, laproscopic, Hx Orthopedic Surgery - Arthroscopy right knee - Immunizations Immunizations up to date: Yes Hx Diphtheria, Pertussis, Tetanus Vaccination: Yes - 2005 Review of Systems - Review of Systems Constitutional: No symptoms reported EENT: No symptoms reported Cardiovascular: No symptoms reported Respiratory: No symptoms reported Gastrointestinal: See HPI Genitourinary: See HPI Female Genitourinary: See HPI Musculoskeletal: No symptoms reported Skin: No symptoms reported Hematologic/Lymphatic: No symptoms reported Neurological/Psychological: No symptoms reported Physical Exam - Vital signs Vitals: Temp Pulse Resp BP Pulse Ox 98.5 F 113 H 18 146/98 H 97 09/24/17 21:21 11/13/16 21:21 11/13/16 21:21 11/13/16 21:21 11/13/16 21:21 Interpretation: Normal - General General appearance: Appears well, Alert, Anxious In distress: None - HEENT Head: Normocephalic, Atraumatic Eyes: Normal Pupils: PERRL - Respiratory Respiratory status: No respiratory distress Chest status: Nontender Breath sounds: Normal Chest palpation: Normal - Cardiovascular Rhythm: Regular, Tachycardia Heart sounds: Normal auscultation, S1 appreciated, S2 appreciated Murmur: No - Abdominal Inspection: Normal, Gravid female Distension: No distension Bowel sounds: Normal Tenderness: Nontender. No: Tender, Guarding Organomegaly: No organomegaly - Back Back: Normal, Nontender - Extremities General upper extremity: Normal inspection, Nontender, Normal color, Normal ROM , Normal temperature General lower extremity: Normal inspection, Nontender, Normal color, Normal ROM , Normal temperature, Normal weight bearing. No: Cristopher's sign - Neurological Neuro grossly intact: Yes Cognition: Normal Orientation: AAOx4 Gavino Coma Scale Eye Opening: Spontaneous Kathryn Coma Scale Verbal: Oriented Gavino Coma Scale Motor: Obeys Commands Gavino Coma Scale Total: 15 Speech: Normal Motor strength normal: LUE, RUE, LLE, RLE Sensory: Normal - Psychological Associated symptoms: Anxious - Skin Skin Temperature: Warm Skin Moisture: Dry Skin Color: Normal Course - Re-evaluation Re-evalutation: CBC, chemistry, urinalysis are generally unremarkable except for ketones in the urine. Patient was given a bolus of IV fluids. Afterwards her symptoms resolved. Patient has a soft benign abdomen, she is well-appearing except for being very anxious about information about her . She burst into tears when I showed her the ultrasound results. She is very happy to see a live intrauterine . Vital signs significantly improved after she calmed down. She has good follow-up, she has no current symptoms, she has had no bleeding. 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 Patient states understanding and agreement. - Vital Signs Vital signs: Temp Pulse Resp BP Pulse Ox 98.3 F 98 15 115/67 96 11/14/16 01:38 11/14/16 01:38 11/14/16 01:38 11/14/16 01:38 11/14/16 01:38 - Laboratory Result Diagrams: 11/13/16 21:45 11/13/16 21:45 Laboratory results interpreted by me: 11/13/16 11/13/16 11/13/16 21:45 21:45 21:45 WBC 11.2 H Carbon Dioxide 21 L Creatinine 0.46 L Beta HCG, Quant 97024.00 H Urine Ketones 80 H Ur Leukocyte Esterase TRACE H Discharge - Discharge Clinical Impression: Abdominal cramping affecting Condition: Stable Disposition: HOME, SELF-CARE Additional Instructions: Your workup solution ketones, you have been given IV fluids for this, continue fluids at home, increase fiber to help with bowel movements. is normal on evaluation today. Follow-up with your MARINE ELECTRONICS REPAIRER. Return to the emergency department for any concerning symptoms including severe pain in the abdomen, vaginal bleeding, fever, or any other concerning symptoms. Referrals: DEJAN BORDEN MD [Primary Care Provider] - Follow up as needed
[2016-11-14 02:39] VITALS: BP 115/67
== END 2016-11-14 01:45 | disposition home or self-care (01) ==
LOC: ER 20:56
DX: O26.92 Pregnancy related conditions, unspecified, second trimester (principal); R10.2 Pelvic and perineal pain; Z3A.15 15 weeks gestation of pregnancy; Z88.6 Allergy status to analgesic agent
CPT/HCPCS: 99284; 36415; 84702; 85025; 80053; 81001; 76805; 93976; J7030

== ENCOUNTER 2016-11-19 18:04 | Emergency (ER) | payer BC, OTHER ==
[2016-11-19 18:53] LABS: APPEARANCE,URINE CLEAR; BILIRUBIN,URINE NEGATIVE (NEGATIVE); GLUCOSE, URINE NEGATIVE (NEGATIVE); KETONES,URINE 80 mg/dL (NEGATIVE); LEUKOCYTE ESTERASE,URINE NEGATIVE (NEGATIVE); NITRITE,URINE NEGATIVE (NEGATIVE); PROTEIN,URINE NEGATIVE (NEGATIVE); URINE SPECIFIC GRAVITY 1.006; UROBILINOGEN,URINE NEGATIVE mg/dL (<2.0)
--- NOTE | 2016-11-19 18:58 | ER Document Report ---
ED Medical Screen (RME) - General Chief Complaint: Pelvic Pain Stated Complaint: ABDOMINAL PAIN Time Seen by Provider: 11/19/16 18:15 Mode of Arrival: Ambulatory Information source: Patient TRAVEL OUTSIDE OF THE [place] IN LAST 30 DAYS: No - HPI Patient complains to provider of: Pelvic cramping, Notes: 11/19/16 18:57 Patient is a 35-year-old female who is approximately 15-16 weeks , presenting to the emergency room for complaints of pelvic cramping that is occurring every 5-10 minutes, she reports that she passed some pinkish colored tissue earlier in the day but denies any vaginal bleeding, no fluid leakage, has a history of previous miscarriages - Related Data Allergies/Adverse Reactions: diazepam [From Valium] Allergy (Mild, Verified 11/13/16 21:25) morphine [Morphine] Allergy (Unknown, Verified 11/13/16 21:25) naproxen [Naproxen] Allergy (Unknown, Verified 11/13/16 21:25) hydromorphone [From Dilaudid] Allergy (Verified 11/13/16 21:25) oxycodone [From Percocet] Allergy (Verified 11/13/16 21:25) Past Medical History Pulmonary Medical History: Reports: Hx Bronchitis Neurological Medical History: Reports: Hx Migraine Renal/ Medical History: Reports: Hx Ovarian Cysts - Polycystic ovary syndrome. Denies: Hx Peritoneal Dialysis Psychiatric Medical History: Reports: Hx Anxiety, Hx Depression Past Surgical History: Reports: Hx Cholecystectomy, Hx Gynecologic Surgery - D& C x2, laproscopic, Hx Orthopedic Surgery - Arthroscopy right knee - Immunizations Immunizations up to date: Yes Hx Diphtheria, Pertussis, Tetanus Vaccination: Yes - 2005 Physical Exam - Vital signs Vitals: Temp Pulse Resp BP Pulse Ox 98.1 F 104 H 16 131/73 H 100 11/19/16 18:12 11/19/16 18:12 11/19/16 18:12 11/19/16 18:12 11/19/16 18:12 Course - Vital Signs Vital signs: Temp Pulse Resp BP Pulse Ox 98.1 F 104 H 16 131/73 H 100 11/19/16 18:12 11/19/16 18:12 11/19/16 18:12 11/19/16 18:12 11/19/16 18:12 - Laboratory Laboratory results interpreted by me: 11/19/16 18:10 Urine Ketones 80 H
[2016-11-19] MEDS ORDERED: NORMAL SALINE 1000 ML 1,000 ML IV ONE (19:49)
[2016-11-19] MEDS ORDERED: DEXTROSE 5%-LACTATED RINGERS 1,000 ML IV ONE (19:54)
--- NOTE | 2016-11-19 20:00 | ER Document Report ---
ED GI/ - General Mode of Arrival: Ambulatory Information source: Patient TRAVEL OUTSIDE OF THE [place] IN LAST 30 DAYS: No - HPI Patient complains to provider of: Abdominal pain <KVNG RAMOS - Last Filed: 11/19/16 20:13> <MADDY DANGELO - Last Filed: 11/19/16 22:36> - General Chief Complaint: Pelvic Pain Stated Complaint: ABDOMINAL PAIN Time Seen by Provider: 11/19/16 18:15 Notes: Patient is a 35-year-old female presented to the emergency department for pelvic cramping. Patient is 15 weeks . Patient states that her cramping is occurring every 5-10 minutes and that currently has eased away from her abdomen is more located in her back. Patient states that she has passed some red tissue earlier today but does not have any vaginal bleeding. Patient denies any fluid leakage. Patient states that she has been drinking more than 100 ounces of water a day. Patient states today she has not eaten probably enough. Patient states that she is diagnosed with diabetes but is currently controlling this with her diet and she has seen a packaging assembler in [place] as well. Patient does have history of miscarriages. Patient is A3. Patient was seen on 10/05/2016 for vaginal bleeding when she was 9 weeks . Patient also had sharp pain in her right lower quadrant at this time which was most likely being caused from an ovarian cyst that was found on ultrasound. Patient was also seen on 11/13/2016 for abdominal cramping ; there was no vaginal bleeding at this visit. (KVNG RAMOS) The patient reports she was diagnosed with diabetes based on a glucose tolerance test. She is on no medications, it is diet controlled. The last 10 chemistries spread out over the last few months have always had blood sugars in the mid 80s. (MADDY DANGELO) - Related Data Allergies/Adverse Reactions: diazepam [From Valium] Allergy (Mild, Verified 11/13/16 21:25) morphine [Morphine] Allergy (Unknown, Verified 11/13/16 21:25) naproxen [Naproxen] Allergy (Unknown, Verified 11/13/16 21:25) hydromorphone [From Dilaudid] Allergy (Verified 11/13/16 21:25) oxycodone [From Percocet] Allergy (Verified 11/13/16 21:25) Past Medical History - General Information source: Patient - Social History Smoking Status: Never Smoker Cigarette use (# per day): No Chew tobacco use (# tins/day): No Smoking Education Provided: No Frequency of alcohol use: None Drug Abuse: None Family History: None Patient has suicidal ideation: No Patient has homicidal ideation: No Pulmonary Medical History: Reports: Hx Bronchitis Neurological Medical History: Reports: Hx Migraine Endocrine Medical History: Reports: Hx Diabetes Mellitus Type 2 - gestational, no meds "diet controlled" Renal/ Medical History: Reports: Hx Ovarian Cysts - Polycystic ovary syndrome Psychiatric Medical History: Reports: Hx Anxiety, Hx Depression Past Surgical History: Reports: Hx Cholecystectomy, Hx Gynecologic Surgery - D& C x2, laproscopic, Hx Orthopedic Surgery - Arthroscopy right knee - Immunizations Immunizations up to date: Yes Hx Diphtheria, Pertussis, Tetanus Vaccination: Yes - 2005 <KVNG RAMOS - Last Filed: 11/19/16 20:13> Review of Systems - Review of Systems Constitutional: No symptoms reported EENT: No symptoms reported Cardiovascular: No symptoms reported Respiratory: No symptoms reported Gastrointestinal: See HPI, Abdominal pain Genitourinary: No symptoms reported Female Genitourinary: See HPI, Musculoskeletal: See HPI, Back pain Skin: No symptoms reported Hematologic/Lymphatic: No symptoms reported Neurological/Psychological: No symptoms reported -: Yes All other systems reviewed and negative <KVNG RAMOS - Last Filed: 11/19/16 20:13> Physical Exam - Vital signs Interpretation: Normal <KVNG RAMOS - Last Filed: 11/19/16 20:13> <MADDY DANGELO - Last Filed: 11/19/16 22:36> - Vital signs Vitals: Temp Pulse Resp BP Pulse Ox 98.1 F 104 H 16 131/73 H 100 11/19/16 18:12 11/19/16 18:12 11/19/16 18:12 11/19/16 18:12 11/19/16 18:12 - Notes Notes: GENERAL: Alert, interacts well. No acute distress. HEAD: Normocephalic, atraumatic. EYES: Appear normal. Pupils equal, round, and reactive to light. ENT: Moist mucus membranes, tongue midline. NECK: Full range of motion. Supple. Trachea midline. LUNGS: Clear to auscultation bilaterally, no wheezes, rales, or rhonchi. No respiratory distress. HEART: Regular rate and rhythm. No murmurs, gallops, or rubs. ABDOMEN: Soft, non-tender. Gravid abdomen. Normal bowel sounds. EXTREMITIES: Moves all 4 extremities spontaneously. Normal strength. No edema. NEUROLOGICAL: Alert and oriented x3. Normal speech. No focal neurological deficits. GCS 15. PSYCH: Normal affect, normal mood. SKIN: Warm, dry, normal turgor. No rashes or lesions noted. (KVNG RAMOS) Course <KVNG RAMOS - Last Filed: 11/19/16 20:13> - Laboratory Result Diagrams: 11/19/16 19:55 11/19/16 19:55 - Diagnostic Test Radiology reviewed: Reports reviewed - 15week 6day IUP with heart rate of 155 <MADDY DANGELO - Last Filed: 11/19/16 22:36> - Re-evaluation Re-evalutation: 11/19/16 21:55 Patient reports that her cramping had improved, until she got up to go to the restroom now she is feeling cramping again. I have added an A1c to get a better idea about her diagnosis of diabetes. 11/19/16 22:33 The patient's A1c is 5.0, at this point I do not think she is being well served by limiting her eating and trying to control blood sugars. She has come in here with large ketones in her urine while she has a dilute urine several times. (MADDY DANGELO) - Vital Signs Vital signs: Temp Pulse Resp BP Pulse Ox 98.1 F 104 H 16 131/73 H 100 11/19/16 18:12 11/19/16 18:12 11/19/16 18:12 11/19/16 18:12 11/19/16 18:12 - Laboratory Laboratory results interpreted by me: 11/19/16 11/19/16 11/19/16 18:10 19:55 19:55 WBC 10.7 H Potassium 3.2 L Creatinine 0.48 L Urine Ketones 80 H Discharge <KVNG RAMOS - Last Filed: 11/19/16 20:13> <MADDY DANGELO - Last Filed: 11/19/16 22:36> - Discharge Clinical Impression: Pelvic cramping in antepartum period Condition: Stable Disposition: HOME, SELF-CARE Additional Instructions: Drink plenty of fluids, do not limit your calorie intake. Follow-up with your VARIETY PERFORMER doctor Monday to review your lab work and your pelvic cramping. RETURN TO THE EMERGENCY ROOM IF ANY NEW OR WORSENING SYMPTOMS. Scribe Attestation: 11/19/16 22:36 I personally performed the services described in the documentation, reviewed and edited the documentation which was dictated to the scribe in my presence, and it accurately records my words and actions. (MADDY DANGELO) Scribe Documentation - Scribe Written by Yulia:: Yulia Puente, 11/19/2016 2020 acting as scribe for :: Landon <KVNG RAMOS - Last Filed: 11/19/16 20:13>
--- NOTE | 2016-11-19 20:04 | RADIOLOGY REPORT (SQ) ---
EXAM DESCRIPTION: U/S OB LIMITED COMPLETED DATE/TIME: 11/19/2016 7:52 pm REASON FOR STUDY: pelvic cramping COMPARISON: 10/05/2016 TECHNIQUE: Limited transabdominal grayscale ultrasound for evaluation of specific requested obstetri sreedhar parameters. LIMITATIONS: None. FINDINGS: CERVICAL LENGTH: 4.0 cm Closed. CHRISTINA: 6.7 cm. FHR: 155 beats per minute. PRESENTATION: Transverse OTHER: Ultrasound age of 15 weeks, 6 days congruent with clinical a age of 15 weeks, 4 days. IMPRESSION: LIMITED OBSTETRICAL ULTRASOUND WITH MEASURED PARAMETERS DELINEATED ABOVE. Trimester of : Second trimester - 13 weeks 1 day to 27 weeks 6 days. TECHNICAL DOCUMENTATION: JOB ID: [id number] [employer]- All Rights Reserved
[2016-11-19 20:22] LABS: ABSOLUTE BASOPHILS # (AUTO) 0.1 10^3/uL (0.0-0.2); ABSOLUTE EOSINOPHILS # (AUTO) 0.2 10^3/uL (0.0-0.6); ABSOLUTE MONOCYTES (AUTO) 0.6 10^3/uL (0.1-1.4); ABSOLUTE NEUT (AUTO) 7.8 10^3/uL (1.7-8.2); BASOPHILS % (AUTO) 0.8 % (0-2); EOSINOPHILS % (AUTO) 2.3 % (0-6); HEMATOCRIT 37.4 % (36.0-47.0); HEMOGLOBIN 13.3 g/dL (12.0-15.5); HGB HCT DIFFERENCE 2.5; LYMPHOCYTES % (AUTO) 18.5 % (13-45); MEAN CORPUSCULAR HEMOGLOBIN 30.2 pg (27.0-33.4); MEAN CORPUSCULAR HGB CONC 35.5 g/dL (32.0-36.0); MEAN CORPUSCULAR VOLUME 85 fl (80-97); MONOCYTES % (AUTO) 5.5 % (3-13); RED BLOOD COUNT 4.39 10^6/uL (3.72-5.28); SEGMENTED NEUTROPHILS % (AUTO) 72.9 % (42-78); WHITE BLOOD COUNT 10.7 10^3/uL (4.0-10.5)
[2016-11-19 20:41] LABS: ALANINE AMINOTRANSFERASE 35 U/L (9-52); ALBUMIN 3.7 g/dL (3.5-5.0); ALKALINE PHOSPHATASE 57 U/L (38-126); ANION GAP 10 (5-19); ASPARTATE AMINO TRANSFERASE 18 U/L (14-36); BILIRUBIN,DIRECT 0.2 mg/dL (0.0-0.4); BILIRUBIN,TOTAL 0.3 mg/dL (0.2-1.3); BLOOD UREA NITROGEN 9 mg/dL (7-20); CALCIUM 9.2 mg/dL (8.4-10.2); CARBON DIOXIDE 22 mmol/L (22-30); CHLORIDE 106 mmol/L (98-107); CREATININE RESULT 0.48 mg/dL (0.52-1.25); GLUCOSE 77 mg/dL (75-110); POTASSIUM 3.2 mmol/L (3.6-5.0); SODIUM 137.9 mmol/L (137-145); TOTAL PROTEIN 6.5 g/dL (6.3-8.2)
[2016-11-19 23:47] VITALS: BP 129/77
== END 2016-11-19 22:42 | disposition home or self-care (01) ==
LOC: ER 18:04
DX: R10.2 Pelvic and perineal pain (principal); O24.419 Gestational diabetes mellitus in pregnancy, unspecified control; R10.9 Unspecified abdominal pain; Z3A.15 15 weeks gestation of pregnancy
CPT/HCPCS: 36415; 76815; 80053; 81001; 83036; 85025; 87086; 96365; 99284

== ENCOUNTER 2016-12-31 06:29 | Outpatient (CLI) | payer BC, OTHER ==
[2016-12-31 07:12] LABS: APPEARANCE,URINE CLEAR; BILIRUBIN,URINE NEGATIVE (NEGATIVE); GLUCOSE, URINE NEGATIVE (NEGATIVE); KETONES,URINE 80 mg/dL (NEGATIVE); LEUKOCYTE ESTERASE,URINE NEGATIVE (NEGATIVE); NITRITE,URINE NEGATIVE (NEGATIVE); PROTEIN,URINE NEGATIVE (NEGATIVE); URINE SPECIFIC GRAVITY 1.003; UROBILINOGEN,URINE NEGATIVE mg/dL (<2.0)
[2016-12-31 07:28] LABS: URINE BARBITURATES SCREEN NEGATIVE; URINE METHADONE SCREEN NEGATIVE; URINE OPIATES LOW NEGATIVE; URINE PHENCYCLIDINE SCREEN NEGATIVE
--- NOTE | 2016-12-31 09:47 | RADIOLOGY REPORT (SQ) ---
EXAM DESCRIPTION: U/S OB LIMITED COMPLETED DATE/TIME: 12/31/2016 9:30 am REASON FOR STUDY: abd pain, cervical length COMPARISON: 11/19/2016. TECHNIQUE: Limited transabdominal and transvaginal grayscale ultrasound for evaluation of specific r equested obstetrical parameters. LIMITATIONS: None. FINDINGS: CERVICAL LENGTH: 3.6 cm. Closed. CHRISTINA: Largest vertical pocket 5.6 cm. FHR: 163 beats per minute. PRESENTATION: Transverse. OTHER: Marginal placenta previa. IMPRESSION: LIMITED OBSTETRICAL ULTRASOUND WITH MEASURED PARAMETERS DELINEATED ABOVE. LIVING IUP. MARGINAL PLACENTA PREVIA. Trimester of : Second trimester - 13 weeks 1 day to 27 weeks 6 days. TECHNICAL DOCUMENTATION: JOB ID: [id number] [employer]- All Rights Reserved
--- NOTE | 2016-12-31 09:58 | L&D Progress Notes ---
PROGRESS NOTES Datetime Report Generated by HAMIDA: 12/31/2016 09:58 PROGRESS NOTE Impression Other: Vaginal pain and discharge Procedures: Sterile Speculum Exam Plan Other: Cervical length, wet prep, genprobe (Annotations: Data stored by [facility] on behalf of user) Informed Consent Obtained: Risks, Benefits and Alternatives Discussed Vital Signs : Reviewed; Within Normal Limits Comment: 36yo @ 21w4d presents with complaints of acute vaginal pain and discharge. Pt states she had a gush of fluid but no fluid on the floor. Pt states this has not happened prior. Pt reports good fm, no vb and denies contractions. Pt denies any rectal pressure or mucoid vaginal discharge. Pt has been seen by M for concerns of diabetes diagnosed in the early 2nd trimester and complete previa. Pt denies any foul smelling vaginal discharge or vaginal/vulvar pruitis. SSE with the appearance of leukoria only. Wet prep is positive for vaginal candidiasis. Cervical length is normal with the most conservative measurement 3.5cm. There was no visible dynamic changes. Pt states 2-3 wks ago her abdominal cervical length was 3.8cm. Pt will be discharged home on vaginal clotrimazole suppository. Pt was given discharge instructions. VAGINAL EXAM Contractions: Not present MEMBRANES Pooling: Negative Membranes: Intact FETUS A FHR - Baseline: 150 FHR Comments: 21w4d not on the monitor 2nd to low gestational age SIGNATURE SIGNATURE: [id number] Signature: with User ID: [email or web address]
[2016-12-31 10:14] LABS: CHLAM PCR NOT DETECTED (NOT DETECT)
== END 2016-12-31 09:42 | disposition home or self-care (01) ==
LOC: LC 06:29
PROVIDERS: ATTEND Obstetrics & Gynecology
PROC: 4A1HXCZ Monitoring of Products of Conception, Cardiac Rate, External Approach (ICD-10-PCS; principal; 2016-12-31)
DX: O23.592 Infection of other part of genital tract in pregnancy, second trimester (principal); Z3A.21 21 weeks gestation of pregnancy
CPT/HCPCS: 76815; 80307; 81001; 87086; 87210; 87491; 87591

== ENCOUNTER 2017-01-29 09:47 | Outpatient (CLI) | payer BC, OTHER ==
[2017-01-29 10:36] LABS: APPEARANCE,URINE SLIGHTLY-CLOUDY; BILIRUBIN,URINE NEGATIVE (NEGATIVE); GLUCOSE, URINE NEGATIVE (NEGATIVE); KETONES,URINE 80 mg/dL (NEGATIVE); LEUKOCYTE ESTERASE,URINE NEGATIVE (NEGATIVE); NITRITE,URINE NEGATIVE (NEGATIVE); PROTEIN,URINE NEGATIVE (NEGATIVE); URINE SPECIFIC GRAVITY 1.003; UROBILINOGEN,URINE NEGATIVE mg/dL (<2.0)
[2017-01-29 10:52] LABS: URINE BARBITURATES SCREEN NEGATIVE; URINE METHADONE SCREEN NEGATIVE; URINE OPIATES LOW NEGATIVE; URINE PHENCYCLIDINE SCREEN NEGATIVE
--- NOTE | 2017-01-29 11:19 | RADIOLOGY REPORT (SQ) ---
EXAM DESCRIPTION: U/S OB LIMITED COMPLETED DATE/TIME: 01/29/2017 11:01 am REASON FOR STUDY: cervical length for ctx COMPARISON: None. TECHNIQUE: Limited transvaginal grayscale ultrasound for evaluation of specific requested obstetrica l parameters. LIMITATIONS: None. FINDINGS: CERVICAL LENGTH: 3.2 cm Closed. CHRISTINA: Adequate FHR: 140 beats per minute. PRESENTATION: Breech. OTHER: No other significant findings. IMPRESSION: LIMITED OBSTETRICAL ULTRASOUND WITH MEASURED PARAMETERS DELINEATED ABOVE. Trimester of : Second trimester - 13 weeks 1 day to 27 weeks 6 days. TECHNICAL DOCUMENTATION: JOB ID: [id number] [employer]- All Rights Reserved
== END 2017-01-29 11:55 | disposition home or self-care (01) ==
LOC: LC 09:47
PROVIDERS: ATTEND Obstetrics & Gynecology Gynecology
PROC: 4A1HXCZ Monitoring of Products of Conception, Cardiac Rate, External Approach (ICD-10-PCS; principal; 2017-01-29)
DX: O47.02 False labor before 37 completed weeks of gestation, second trimester (principal); Z3A.00 Weeks of gestation of pregnancy not specified
CPT/HCPCS: 76815; 80307; 81001

== ENCOUNTER → 2017-04-03 | Outpatient (CLI) | payer BC, OTHER | LOC: LC 11:47 | PROVIDERS: ATTEND Student in an Organized Health Care Education/Training Program | DX: Z53.9 Procedure and treatment not carried out, unspecified reason (principal) ==

== ENCOUNTER 2017-08-01 19:38 | Emergency (ER) | payer BC, OTHER ==
[2017-08-01 19:58] VITALS: BP 109/74
== END 2017-08-01 20:30 | disposition left against medical advice (07) ==
LOC: ER 19:38
DX: Z53.21 Procedure and treatment not carried out due to patient leaving prior to being seen by health care provider (principal)

== ENCOUNTER 2017-09-02 13:22 | Emergency (ER) | payer BC, OTHER ==
[2017-09-02 13:31] VITALS: BP 116/80
[2017-09-02] MEDS ORDERED: ACETAMINOPHEN 325 MG TABLET PO ONE (14:03)
[2017-09-02] MEDS ORDERED: ONDANSETRON 4 MG TAB.RAPDIS PO ONE (14:03)
--- NOTE | 2017-09-02 14:05 | ER Document Report ---
ED Medical Screen (RME) - General Chief Complaint: Abdominal Pain Stated Complaint: ABDOMEN PAIN, NAUSEA Time Seen by Provider: 09/02/17 13:58 Notes: RAPID MEDICAL EVALUATION DISCLOSURE I have seen this patient as part of a Rapid Medical Evaluation and, if applicable, placed any initially appropriate orders. The patient will be seen and fully evaluated, including a full history and physical exam, by a provider ( in Main ED or Fast Track) when a room becomes available. 36-year-old female here with complaints of right lower quadrant abdominal pain as well as nausea that started yesterday. She has had some diarrhea as well however this is been ongoing for several days now. She has not tried anything for the symptoms since she is breast-feeding (just had a baby in April). She has not had any fevers chills dysuria hematuria frequency hesitancy. She does have a history of ovarian cysts however denies vaginal bleeding/discharge. Status post cholecystectomy but still has appendix. EXAM Minimal RUQ TTP Exquisite RLQ TTP No peritoneal signs NOTE Patient requests no CT scan contrast due to breast-feeding TRAVEL OUTSIDE OF THE [place]. IN LAST 30 DAYS: No - Related Data Allergies/Adverse Reactions: diazepam [From Valium] Allergy (Mild, Verified 09/02/17 13:26) crazy morphine [Morphine] Allergy (Unknown, Verified 09/02/17 13:26) Chest pain naproxen [Naproxen] Allergy (Unknown, Verified 09/02/17 13:26) vomitting hydromorphone [From Dilaudid] Allergy (Verified 09/02/17 13:26) throat swelling oxycodone [From Percocet] Allergy (Verified 09/02/17 13:26) itch, vomit, throat swelling Past Medical History Pulmonary Medical History: Reports: Hx Bronchitis Neurological Medical History: Reports: Hx Migraine Endocrine Medical History: Reports: Hx Diabetes Mellitus Type 2 - gestational, no meds "diet controlled" Renal/ Medical History: Reports: Hx Ovarian Cysts - Polycystic ovary syndrome. Denies: Hx Peritoneal Dialysis Psychiatric Medical History: Reports: Hx Anxiety, Hx Depression Past Surgical History: Reports: Hx Cholecystectomy, Hx Gynecologic Surgery - D& C x2, laproscopic, Hx Orthopedic Surgery - Arthroscopy right knee - Immunizations Immunizations up to date: Yes Hx Diphtheria, Pertussis, Tetanus Vaccination: Yes - 2005 Physical Exam - Vital signs Vitals: Temp Pulse Resp BP Pulse Ox 97.8 F 84 16 116/80 98 09/02/17 13:28 09/02/17 13:28 09/02/17 13:28 09/02/17 13:28 09/02/17 13:28 Course - Vital Signs Vital signs: Temp Pulse Resp BP Pulse Ox 97.8 F 84 16 116/80 98 09/02/17 13:28 09/02/17 13:28 09/02/17 13:28 09/02/17 13:28 09/02/17 13:28
[2017-09-02 15:05] LABS: ABSOLUTE BASOPHILS # (AUTO) 0.1 10^3/uL (0.0-0.2); ABSOLUTE EOSINOPHILS # (AUTO) 0.3 10^3/uL (0.0-0.6); ABSOLUTE LYMPHOCYTES (AUTO) 1.8 10^3/uL (0.5-4.7); ABSOLUTE MONOCYTES (AUTO) 0.4 10^3/uL (0.1-1.4); ABSOLUTE NEUT (AUTO) 3.7 10^3/uL (1.7-8.2); BASOPHILS % (AUTO) 0.8 % (0-2); HEMATOCRIT 43.3 % (36.0-47.0); HEMOGLOBIN 14.8 g/dL (12.0-15.5); LYMPHOCYTES % (AUTO) 28.7 % (13-45); MEAN CORPUSCULAR HEMOGLOBIN 28.8 pg (27.0-33.4); MEAN CORPUSCULAR HGB CONC 34.1 g/dL (32.0-36.0); MEAN CORPUSCULAR VOLUME 84 fl (80-97); MONOCYTES % (AUTO) 6.3 % (3-13); PLATELET COUNT 293 10^3/uL (150-450); RED BLOOD COUNT 5.13 10^6/uL (3.72-5.28); RED CELL DISTRIBUTION WIDTH 13.5 % (11.5-14.0); SEGMENTED NEUTROPHILS % (AUTO) 59.2 % (42-78); TOTAL CELLS COUNTED % (AUTO) 100 %; WHITE BLOOD COUNT 6.3 10^3/uL (4.0-10.5)
[2017-09-02 15:18] LABS: ALANINE AMINOTRANSFERASE 59 U/L (9-52); ALBUMIN 4.3 g/dL (3.5-5.0); ALKALINE PHOSPHATASE 91 U/L (38-126); ANION GAP 10 (5-19); ASPARTATE AMINO TRANSFERASE 39 U/L (14-36); BILIRUBIN,DIRECT 0.3 mg/dL (0.0-0.4); BILIRUBIN,TOTAL 0.6 mg/dL (0.2-1.3); BLOOD UREA NITROGEN 10 mg/dL (7-20); CALCIUM 9.6 mg/dL (8.4-10.2); CARBON DIOXIDE 31 mmol/L (22-30); CHLORIDE 104 mmol/L (98-107); GLUCOSE 86 mg/dL (75-110); LIPASE 128.8 U/L (23-300); POTASSIUM 4.3 mmol/L (3.6-5.0); SODIUM 145.2 mmol/L (137-145); TOTAL PROTEIN 7.6 g/dL (6.3-8.2)
[2017-09-02 15:53] LABS: APPEARANCE,URINE SLIGHTLY-CLOUDY; BILIRUBIN,URINE NEGATIVE (NEGATIVE); COLOR,URINE YELLOW; GLUCOSE, URINE NEGATIVE (NEGATIVE); KETONES,URINE NEGATIVE (NEGATIVE); LEUKOCYTE ESTERASE,URINE NEGATIVE (NEGATIVE); NITRITE,URINE NEGATIVE (NEGATIVE); PROTEIN,URINE NEGATIVE (NEGATIVE); URINE SPECIFIC GRAVITY 1.017; UROBILINOGEN,URINE NEGATIVE mg/dL (<2.0)
--- NOTE | 2017-09-02 16:12 | RADIOLOGY REPORT (SQ) ---
EXAM DESCRIPTION: U/S NON OB PEL TV W/DOPPLER COMPLETED DATE/TIME: 09/02/2017 4:04 pm REASON FOR STUDY: rlq pain COMPARISON: 12/12/2015 TECHNIQUE: Dynamic and static grayscale images acquired of the pelvis via transvaginal approach and recorded on PACS. Additional selected color Doppler and spectral images recorded. LIMITATIONS: None. FINDINGS: UTERUS: Retroverted. Contour normal. No mass. ENDOMETRIAL STRIPE: No focal or generalized thickening. No masses. CERVIX: No nabothian cysts. RIGHT OVARY AND DOPPLER: Normal size. No worrisome masses. Normal arterial vascular flow without evid ence for torsion. LEFT OVARY AND DOPPLER: Normal size. No worrisome masses. Normal arterial vascular flow without evide nce for torsion. FREE FLUID: None noted. OTHER: No other significant finding. MEASUREMENTS: UTERUS: 6.5 x 4.0 x 4.6 cm ENDOMETRIAL STRIPE: 0.8 cm RIGHT OVARY: 3.0 x 2.7 x 3.3 cm LEFT OVARY: 3.7 x 2.6 x 2.8 cm IMPRESSION: NORMAL TRANSVAGINAL PELVIC ULTRASOUND. TECHNICAL DOCUMENTATION: JOB ID: [id number]- All Rights Reserved Rev-07/07 Reading location - IP/workstation name: [email or web address]
--- NOTE | 2017-09-02 16:46 | RADIOLOGY REPORT (SQ) ---
EXAM DESCRIPTION: CT ABD/PELVIS NO ORAL OR IV COMPLETED DATE/TIME: 09/02/2017 4:36 pm REASON FOR STUDY: rlq pain COMPARISON: PELVIC ULTRASOUND 09/02/2017 CT ABDOMEN PELVIS 01/03/2013 TECHNIQUE: CT scan of the abdomen and pelvis performed without intravenous or oral contrast. Images reviewed with lung, soft tissue, and bone windows. Reconstructed coronal and sagittal MPR images revi ewed. All images stored on PACS. All CT scanners at this facility use dose modulation, iterative reconstruction, and/or weight based d osing when appropriate to reduce radiation dose to as low as reasonably achievable (ALARA). [facility]: Dose Right [facility]: CareDose [facility]: Dose Right [facility]: Teradose 4D [facility]: Delivery Agent RADIATION DOSE: 19.2mGy. LIMITATIONS: None. FINDINGS: LOWER CHEST: No significant findings. No nodules or infiltrates. NON-CONTRASTED LIVER, SPLEEN, ADRENALS: Evaluation limited by lack of IV contrast. No identified sign ificant masses. PANCREAS: No masses. No peripancreatic inflammatory changes. GALLBLADDER: Surgically absent RIGHT KIDNEY AND URETER: No suspicious masses. Assessment limited by lack of IV contrast. No signif icant calcifications. No hydronephrosis or hydroureter. LEFT KIDNEY AND URETER: No suspicious masses. Assessment limited by lack of IV contrast. No signifi cant calcifications. No hydronephrosis or hydroureter. AORTA AND RETROPERITONEUM: No aneurysm. No retroperitoneal masses or adenopathy. BOWEL AND PERITONEAL CAVITY: No obvious masses or inflammatory changes. No free fluid. APPENDIX: Normal. PELVIS, BLADDER, AND ABDOMINAL WALL:No abnormal masses. No free fluid. Bladder normal. BONES: No significant findings. OTHER: No other significant finding. IMPRESSION: NO SIGNIFICANT OR ACUTE PROCESS IN THE ABDOMEN OR PELVIS. COMMENT: Quality ID # [id number]: Final reports with documentation of one or more dose reduction techniques (e.g., Automated exposure control, adjustment of the mA and/or kV according to patient size, use of iterative reconstruction technique) TECHNICAL DOCUMENTATION: JOB ID: [id number] [employer]- All Rights Reserved Reading location - IP/workstation name: [email or web address]
--- NOTE | 2017-09-02 16:54 | ER Document Report ---
ED GI/ - General Chief Complaint: Abdominal Pain Stated Complaint: ABDOMEN PAIN, NAUSEA Time Seen by Provider: 09/02/17 13:58 Mode of Arrival: Ambulatory Information source: Patient Notes: Patient is a 36-year-old female who is breast-feeding her 4-month-old son who presents to the ER today for right lower quadrant pain 1 day. Patient admits to nausea with 2 episodes of vomiting and watery diarrhea x 4 today. She denies any fever chills. She admits to a history of ovarian cysts. she does still have her appendix. TRAVEL OUTSIDE OF THE [place].S. IN LAST 30 DAYS: No - Related Data Allergies/Adverse Reactions: diazepam [From Valium] Allergy (Mild, Verified 09/02/17 14:06) crazy morphine [Morphine] Allergy (Unknown, Verified 09/02/17 14:06) Chest pain naproxen [Naproxen] Allergy (Unknown, Verified 09/02/17 14:06) vomitting hydromorphone [From Dilaudid] Allergy (Verified 09/02/17 14:06) throat swelling oxycodone [From Percocet] Allergy (Verified 09/02/17 14:06) itch, vomit, throat swelling Past Medical History - General Information source: Patient - Social History Smoking Status: Former Smoker Chew tobacco use (# tins/day): No Frequency of alcohol use: None Drug Abuse: None Family History: None Patient has suicidal ideation: No Patient has homicidal ideation: No Pulmonary Medical History: Reports: Hx Bronchitis Neurological Medical History: Reports: Hx Migraine Endocrine Medical History: Reports: Hx Diabetes Mellitus Type 2 - gestational, no meds "diet controlled" Renal/ Medical History: Reports: Hx Ovarian Cysts - Polycystic ovary syndrome. Denies: Hx Peritoneal Dialysis Psychiatric Medical History: Reports: Hx Anxiety, Hx Depression Past Surgical History: Reports: Hx Cholecystectomy, Hx Gynecologic Surgery - D& C x2, laproscopic, Hx Orthopedic Surgery - Arthroscopy right knee - Immunizations Immunizations up to date: Yes Hx Diphtheria, Pertussis, Tetanus Vaccination: Yes - 2005 Review of Systems - Review of Systems Constitutional: No symptoms reported EENT: No symptoms reported Cardiovascular: No symptoms reported Respiratory: No symptoms reported Gastrointestinal: See HPI Genitourinary: No symptoms reported Female Genitourinary: No symptoms reported Musculoskeletal: No symptoms reported Skin: No symptoms reported Hematologic/Lymphatic: No symptoms reported Neurological/Psychological: No symptoms reported Physical Exam - Vital signs Vitals: Temp Pulse Resp BP Pulse Ox 97.8 F 84 16 116/80 98 09/02/17 13:28 09/02/17 13:28 09/02/17 13:28 09/02/17 13:28 09/02/17 13:28 - Notes Notes: PHYSICAL EXAMINATION: GENERAL: Uncomfortable appearing, but in no acute distress. HEAD: Atraumatic, normocephalic. EYES: Pupils equal round and reactive to light, extraocular movements intact, sclera anicteric, conjunctiva are normal. NECK: Normal range of motion, supple without lymphadenopathy LUNGS: CTAB and equal. No wheezes rales or rhonchi. HEART: Regular rate and rhythm without murmurs ABDOMEN: Soft, right lower quadrant tenderness. McBurney's sign positive, No guarding, no rebound BACK: no vertebral tenderness, normal ROM GI/: no CVA tenderness EXTREMITIES: Normal range of motion, no pitting edema. No cyanosis. NEUROLOGICAL: Cranial nerves grossly intact. Normal sensory/motor exams. PSYCH: Normal mood, normal affect. SKIN: Warm, Dry, normal turgor, no rashes or lesions noted Course - Re-evaluation Re-evalutation: 09/02/17 17:58 Lab work is unremarkable today, patient refuses to do IV or oral contrast with the CAT scan that was ordered in triage due to her breast-feeding. She states she has had a very difficult time breast-feeding and she does not want to pump and dump for any amount of time. Patient went to ultrasound first which did not reveal any ovarian cyst or other acute pathology. test negative today. Radiologist did state that appendix was probably well visualized due to her weight without any contrast. CT with no contrast of the abdomen and pelvis did reveal a normal appearance of the appendix. Patient is strongly advised to return with any worsening symptoms and was given symptoms of appendicitis to return for. Patient is in agreement with plan. - Vital Signs Vital signs: Temp Pulse Resp BP Pulse Ox 97.8 F 84 16 116/80 98 09/02/17 13:28 09/02/17 13:28 09/02/17 13:28 09/02/17 13:28 09/02/17 13:28 - Laboratory Result Diagrams: 09/02/17 14:39 09/02/17 14:39 Laboratory results interpreted by me: 09/02/17 14:39 Sodium 145.2 H Carbon Dioxide 31 H AST 39 H ALT 59 H Discharge - Discharge Clinical Impression: Lower abdominal pain, Nausea vomiting and diarrhea Condition: Stable Disposition: HOME, SELF-CARE Instructions: Observation for Appendicitis ([facility]) Additional Instructions: Return immediately for any new or worsening symptoms. Follow up with primary care provider, call tomorrow to make followup appointment. Prescriptions: Ondansetron [Zofran Odt 4 mg Tablet] 1 - 2 tab PO Q4HP PRN #30 tab.rapdis PRN Reason:
== END 2017-09-02 17:04 | disposition home or self-care (01) ==
LOC: ER 13:22
DX: R10.31 Right lower quadrant pain (principal); R11.2 Nausea with vomiting, unspecified; R19.7 Diarrhea, unspecified; Z90.49 Acquired absence of other specified parts of digestive tract; Z88.8 Allergy status to other drugs, medicaments and biological substances; Z88.5 Allergy status to narcotic agent; Z87.891 Personal history of nicotine dependence
CPT/HCPCS: 99284; 36415; 83690; 85025; 81025; 80053; 81001; 76830; 93976; 74176; S0119

== ENCOUNTER 2018-01-29 16:55 | Emergency (ER) | payer BC, OTHER ==
[2018-01-29 17:16] VITALS: BP 128/77
--- NOTE | 2018-01-29 17:49 | ER Document Report ---
ED General - General Chief Complaint: Chest Pain Stated Complaint: DIFFICULTY BREATHING Time Seen by Provider: 01/29/18 17:41 TRAVEL OUTSIDE OF THE [place]. IN LAST 30 DAYS: No - HPI Patient complains to provider of: Chest pain difficulty breathing Notes: Patient coming in for evaluation of chest pain difficulty breathing chest pain radiating to her jaw. Patient states occurred just prior to arrival. Patient states that she thinks this is more of an anxiety flare. Patient denies any recent travel denies any fever chills nausea vomiting diarrhea denies any cough. Patient is otherwise resting comfortably upon my evaluation. - Related Data Allergies/Adverse Reactions: diazepam [From Valium] Allergy (Mild, Verified 01/29/18 16:58) crazy morphine [Morphine] Allergy (Unknown, Verified 01/29/18 16:58) Chest pain naproxen [Naproxen] Allergy (Unknown, Verified 01/29/18 16:58) vomitting hydromorphone [From Dilaudid] Allergy (Verified 01/29/18 16:58) throat swelling oxycodone [From Percocet] Allergy (Verified 01/29/18 16:58) itch, vomit, throat swelling Past Medical History - Social History Smoking Status: Unknown if Ever Smoked Family History: None Pulmonary Medical History: Reports: Hx Bronchitis Neurological Medical History: Reports: Hx Migraine Endocrine Medical History: Reports: Hx Diabetes Mellitus Type 2 - gestational, no meds "diet controlled" Renal/ Medical History: Reports: Hx Ovarian Cysts - Polycystic ovary syndrome. Denies: Hx Peritoneal Dialysis Psychiatric Medical History: Reports: Hx Anxiety, Hx Depression Past Surgical History: Reports: Hx Cholecystectomy, Hx Gynecologic Surgery - D& C x2, laproscopic, Hx Orthopedic Surgery - Arthroscopy right knee - Immunizations Immunizations up to date: Yes Hx Diphtheria, Pertussis, Tetanus Vaccination: Yes - 2005 Review of Systems - Review of Systems Constitutional: No symptoms reported EENT: No symptoms reported Cardiovascular: Chest pain Respiratory: Short of breath Gastrointestinal: No symptoms reported Genitourinary: No symptoms reported Female Genitourinary: No symptoms reported Musculoskeletal: No symptoms reported Skin: No symptoms reported Hematologic/Lymphatic: No symptoms reported Neurological/Psychological: No symptoms reported -: Yes All other systems reviewed and negative Physical Exam - Vital signs Vitals: Temp Pulse BP Pulse Ox 97.9 F 87 128/77 H 97 01/29/18 17:13 12/10/18 17:13 01/29/18 17:13 01/29/18 17:13 Interpretation: Normal - General General appearance: Appears well, Alert - HEENT Head: Normocephalic, Atraumatic Eyes: Normal Pupils: PERRL - Respiratory Respiratory status: No respiratory distress Chest status: Nontender Breath sounds: Normal Chest palpation: Normal - Cardiovascular Rhythm: Regular Heart sounds: Normal auscultation Murmur: No - Abdominal Inspection: Normal Distension: No distension Bowel sounds: Normal Tenderness: Nontender Organomegaly: No organomegaly - Back Back: Normal, Nontender - Extremities General upper extremity: Normal inspection, Nontender, Normal color, Normal ROM , Normal temperature General lower extremity: Normal inspection, Nontender, Normal color, Normal ROM , Normal temperature, Normal weight bearing. No: Cristopher's sign - Neurological Neuro grossly intact: Yes Cognition: Normal Orientation: AAOx4 Gavino Coma Scale Eye Opening: Spontaneous [place] Coma Scale Verbal: Oriented Gavino Coma Scale Motor: Obeys Commands Gavino Coma Scale Total: 15 Speech: Normal Motor strength normal: LUE, RUE, LLE, RLE Sensory: Normal - Psychological Associated symptoms: Normal affect, Normal mood - Skin Skin Temperature: Warm Skin Moisture: Dry Skin Color: Normal Course - Re-evaluation Re-evalutation: 01/29/18 21:09 The patient has decided not to proceed with further recommended testing or treatment to determine the cause of their symptoms. The risks and alternatives to the recommendation were discussed and the patient voiced understanding. The patient appears clinically to have capacity to make this decision. The patient was instructed that he/she could return to the ER at any time to complete the testing or treatment.. Explained to patient that her EKG was otherwise normal. Patient at this time is declining any further testing at this time the patient concerned about possible chronic disease such as PE pneumonia also cardiac disease does underlying not seen on EKG. Patient states understanding but still wishes to sign out AGAINST MEDICAL ADVICE. - Vital Signs Vital signs: Temp Pulse Resp BP Pulse Ox 97.9 F 87 128/77 H 97 01/29/18 17:13 01/29/18 17:13 01/29/18 17:13 01/29/18 17:13 Discharge - Discharge Clinical Impression: Chest pain Qualifiers: Chest pain type: unspecified Qualified Code(s): R07.9 - Chest pain, unspecified Dyspnea Qualifiers: Dyspnea type: unspecified Qualified Code(s): R06.00 - Dyspnea, unspecified Condition: Good Disposition: HOME, SELF-CARE Instructions: Chest Wall Pain ([facility]), Chest Pain of Unclear Cause ([facility]), Dyspnea , Nonspecific ([facility]) Additional Instructions: Your EKG is normal however complete workup for shortness of breath chest pain jaw pain requires more testing to evaluate for cardiac disease pulmonary disease. You have declined this testing at this time. You have decided not to proceed with further recommended testing or treatment to determine the cause of your symptoms. The risks and alternatives to the recommendation were discussed and you voiced understanding. You appears clinically to have capacity to make this decision. Please return to the ER at any time to complete the testing or treatment. Please make sure you drink plenty of water I would recommend Tylenol Motrin for pain control. Please return for any other concerns.
--- NOTE | 2018-01-30 13:12 | EKG REPORT ---
SEVERITY:- NORMAL ECG - SINUS RHYTHM : Confirmed by: Shiela Camara MD 30-Jan-2018 13:11:31
== END 2018-01-29 18:03 | disposition left against medical advice (07) ==
LOC: ER 16:55
DX: R07.9 Chest pain, unspecified (principal); R06.00 Dyspnea, unspecified; F41.9 Anxiety disorder, unspecified; E11.9 Type 2 diabetes mellitus without complications; Z88.6 Allergy status to analgesic agent; Z90.49 Acquired absence of other specified parts of digestive tract
CPT/HCPCS: 93005; 93010; 99285

== ENCOUNTER 2018-11-05 13:23 | Emergency (ER) | payer OTHER ==
[2018-11-05] MEDS ORDERED: NORMAL SALINE 1000 ML 1,000 ML IV ONE (14:42)
[2018-11-05] MEDS ORDERED: ONDANSETRON HCL INJ/PF 4 MG/2 ML SDV IV ONE (14:43)
--- NOTE | 2018-11-05 14:44 | ER Document Report ---
ED Medical Screen (RME) - General Chief Complaint: Back Pain Stated Complaint: BACK PAIN Time Seen by Provider: 11/05/18 14:30 TRAVEL OUTSIDE OF THE [place] IN LAST 30 DAYS: No - HPI Notes: 11/05/18 14:43 Patient is a 37-year-old female no significant past medical history who presents complaining of sudden onset left flank pain that radiates around into her groin with urinary urgency and voiding small amounts that began this morning. Patient states that the pain is coming in waves and when the pain hits, patient cannot find a comfortable position. She has had nausea and one episode of vomiting. No injury. Denies ALVARENGA, fever, neck pain, URI, CP, SOB, Abd pain, or rash. I have treated and performed a rapid initial assessment of this patient. A comprehensive ED assessment and evaluation of the patient, analysis of test results and completion of medical decision making process will be conducted by additional ED providers. PHYSICAL EXAMINATION: GENERAL: Well-appearing, well-nourished and in no acute distress. A&Ox4. Answers questions appropriately. LUNGS: Breath sounds clear to auscultation bilaterally and equal. No wheezes rales or rhonchi. HEART: Regular rate and rhythm without murmurs, rubs, gallops. ABDOMEN: Soft, nondistended abdomen. No guarding, no rebound. Normal bowel sounds present. + left mild CVA tenderness. Grossly nontender (cannot elicit thorough abd exam w/o bed, however). - Related Data Allergies/Adverse Reactions: diazepam [From Valium] Allergy (Mild, Verified 11/05/18 13:24) crazy morphine [Morphine] Allergy (Unknown, Verified 11/05/18 13:24) Chest pain naproxen [Naproxen] Allergy (Unknown, Verified 11/05/18 13:24) vomitting hydromorphone [From Dilaudid] Allergy (Verified 11/05/18 13:24) throat swelling oxycodone [From Percocet] Allergy (Verified 11/05/18 13:24) itch, vomit, throat swelling Past Medical History Pulmonary Medical History: Reports: Hx Bronchitis Neurological Medical History: Reports: Hx Migraine Endocrine Medical History: Reports: Hx Diabetes Mellitus Type 2 - gestational, no meds "diet controlled" Renal/ Medical History: Reports: Hx Ovarian Cysts - Polycystic ovary syndrome. Denies: Hx Peritoneal Dialysis Psychiatric Medical History: Reports: Hx Anxiety, Hx Depression Past Surgical History: Reports: Hx Cholecystectomy, Hx Gynecologic Surgery - D&C x2, laproscopic, Hx Orthopedic Surgery - Arthroscopy right knee - Immunizations Immunizations up to date: Yes Hx Diphtheria, Pertussis, Tetanus Vaccination: Yes - 2005 Physical Exam - Vital signs Vitals: Temp Pulse Resp BP Pulse Ox 97.7 F 70 18 127/80 H 97 11/05/18 13:27 11/05/18 13:27 11/05/18 13:27 11/05/18 13:27 11/05/18 13:27 Course - Vital Signs Vital signs: Temp Pulse Resp BP Pulse Ox 97.7 F 70 18 127/80 H 97 11/05/18 13:27 11/05/18 13:27 11/05/18 13:27 11/05/18 13:27 11/05/18 13:27
[2018-11-05] MEDS ORDERED: KETOROLAC TROMETHAMINE INJ/PF 30 MG/1 ML SDV IV ONE (14:51)
--- NOTE | 2018-11-05 15:21 | RADIOLOGY REPORT (SQ) ---
EXAM DESCRIPTION: CT ABD/PELVIS NO ORAL OR IV COMPLETED DATE/TIME: 11/05/2018 3:04 pm REASON FOR STUDY: Lt flank pain COMPARISON: 09/02/2017. TECHNIQUE: CT scan of the abdomen and pelvis performed without intravenous or oral contrast. Images reviewed with lung, soft tissue, and bone windows. Reconstructed coronal and sagittal MPR images revi ewed. All images stored on PACS. All CT scanners at this facility use dose modulation, iterative reconstruction, and/or weight based d osing when appropriate to reduce radiation dose to as low as reasonably achievable (ALARA). [facility]: Dose Right [facility]: CareDose [facility]: Dose Right [facility]: Teradose 4D [facility]: Sensor Tower RADIATION DOSE: CT Rad equipment meets quality standard of care and radiation dose reduction techniq ues were employed. CTDIvol: 17.4 mGy. DLP: 1047 mGy-cm.mGy. LIMITATIONS: None. FINDINGS: LOWER CHEST: No significant findings. No nodules or infiltrates. NON-CONTRASTED LIVER, SPLEEN, ADRENALS: Evaluation limited by lack of IV contrast. No identified sign ificant masses. PANCREAS: No masses. No peripancreatic inflammatory changes. GALLBLADDER: Surgically absent. RIGHT KIDNEY AND URETER: No suspicious masses. Assessment limited by lack of IV contrast. No signif icant calcifications. No hydronephrosis or hydroureter. LEFT KIDNEY AND URETER: No suspicious masses. Assessment limited by lack of IV contrast. No signifi cant calcifications. No hydronephrosis or hydroureter. AORTA AND RETROPERITONEUM: No aneurysm. No retroperitoneal masses or adenopathy. BOWEL AND PERITONEAL CAVITY: No obvious masses or inflammatory changes. No free fluid. APPENDIX: Normal. PELVIS, BLADDER, AND ABDOMINAL WALL:No abnormal masses. No free fluid. Bladder normal. BONES: No significant findings. OTHER: No other significant finding. IMPRESSION: NO SIGNIFICANT OR ACUTE PROCESS IN THE ABDOMEN OR PELVIS. COMMENT: Quality ID # [id number]: Final reports with documentation of one or more dose reduction techniques (e.g., Automated exposure control, adjustment of the mA and/or kV according to patient size, use of iterative reconstruction technique) TECHNICAL DOCUMENTATION: JOB ID: [id number] [employer]- All Rights Reserved Reading location - IP/workstation name: [email or web address]
[2018-11-05 15:48] LABS: ABSOLUTE BASOPHILS # (AUTO) 0.1 10^3/uL (0.0-0.2); ABSOLUTE EOSINOPHILS # (AUTO) 0.2 10^3/uL (0.0-0.6); ABSOLUTE LYMPHOCYTES (AUTO) 1.9 10^3/uL (0.5-4.7); ABSOLUTE MONOCYTES (AUTO) 0.6 10^3/uL (0.1-1.4); BASOPHILS % (AUTO) 0.8 % (0-2); EOSINOPHILS % (AUTO) 2.5 % (0-6); HEMATOCRIT 43.5 % (36.0-47.0); HEMOGLOBIN 14.5 g/dL (12.0-15.5); LYMPHOCYTES % (AUTO) 22.2 % (13-45); MEAN CORPUSCULAR HEMOGLOBIN 27.7 pg (27.0-33.4); MEAN CORPUSCULAR HGB CONC 33.3 g/dL (32.0-36.0); MEAN CORPUSCULAR VOLUME 83 fl (80-97); MONOCYTES % (AUTO) 6.4 % (3-13); PLATELET COUNT 313 10^3/uL (150-450); RED BLOOD COUNT 5.23 10^6/uL (3.72-5.28); RED CELL DISTRIBUTION WIDTH 13.7 % (11.5-14.0); SEGMENTED NEUTROPHILS % (AUTO) 68.1 % (42-78); TOTAL CELLS COUNTED % (AUTO) 100 %; WHITE BLOOD COUNT 8.8 10^3/uL (4.0-10.5)
[2018-11-05 16:07] LABS: ALBUMIN 4.7 g/dL (3.5-5.0); ALKALINE PHOSPHATASE 94 U/L (38-126); ANION GAP 11 (5-19); ASPARTATE AMINO TRANSFERASE 32 U/L (14-36); BILIRUBIN,DIRECT 0.1 mg/dL (0.0-0.4); BILIRUBIN,TOTAL 0.4 mg/dL (0.2-1.3); BLOOD UREA NITROGEN 8 mg/dL (7-20); CARBON DIOXIDE 28 mmol/L (22-30); CHLORIDE 101 mmol/L (98-107); GLUCOSE 88 mg/dL (75-110); POTASSIUM 4.3 mmol/L (3.6-5.0); TOTAL PROTEIN 7.7 g/dL (6.3-8.2)
[2018-11-05 17:16] LABS: APPEARANCE,URINE SLIGHTLY-CLOUDY; BILIRUBIN,URINE NEGATIVE (NEGATIVE); COLOR,URINE YELLOW; GLUCOSE, URINE NEGATIVE (NEGATIVE); KETONES,URINE 20 mg/dL (NEGATIVE); LEUKOCYTE ESTERASE,URINE NEGATIVE (NEGATIVE); NITRITE,URINE NEGATIVE (NEGATIVE); PROTEIN,URINE NEGATIVE (NEGATIVE); URINE SPECIFIC GRAVITY 1.021; UROBILINOGEN,URINE NEGATIVE mg/dL (<2.0)
--- NOTE | 2018-11-05 17:17 | ER Document Report ---
ED General - General Chief Complaint: Back Pain Stated Complaint: BACK PAIN Time Seen by Provider: 11/05/18 14:30 Primary Care Provider: DEJAN BORDEN MD [Primary Care Provider] - Follow up as needed TRAVEL OUTSIDE OF THE [place] IN LAST 30 DAYS: No - HPI Notes: Patient presents with sudden onset of left stabbing back pain nonradiating to her vaginal area. No history of kidney stones. No known medical problems other than history of PCOS. She has had 2 intermittent bouts of vomiting and the pain comes in waves. Some fevers or illnesses cough congestion chest pain abdominal pain shortness of breath or dysuria. No concern for vaginal infection or discharge. LMP ~ 2 wks ago. - Related Data Allergies/Adverse Reactions: diazepam [From Valium] Allergy (Mild, Verified 11/05/18 13:24) crazy morphine [Morphine] Allergy (Unknown, Verified 11/05/18 13:24) Chest pain naproxen [Naproxen] Allergy (Unknown, Verified 11/05/18 13:24) vomitting hydromorphone [From Dilaudid] Allergy (Verified 11/05/18 13:24) throat swelling oxycodone [From Percocet] Allergy (Verified 11/05/18 13:24) itch, vomit, throat swelling Past Medical History - Social History Smoking Status: Unknown if Ever Smoked Family History: None Pulmonary Medical History: Reports: Hx Bronchitis Neurological Medical History: Reports: Hx Migraine Endocrine Medical History: Reports: Hx Diabetes Mellitus Type 2 - gestational, no meds "diet controlled" Renal/ Medical History: Reports: Hx Ovarian Cysts - Polycystic ovary syndrome. Denies: Hx Peritoneal Dialysis Psychiatric Medical History: Reports: Hx Anxiety, Hx Depression Past Surgical History: Reports: Hx Cholecystectomy, Hx Gynecologic Surgery - D&C x2, laproscopic, Hx Orthopedic Surgery - Arthroscopy right knee - Immunizations Immunizations up to date: Yes Hx Diphtheria, Pertussis, Tetanus Vaccination: Yes - 2005 Review of Systems - Review of Systems Constitutional: No symptoms reported EENT: No symptoms reported Cardiovascular: No symptoms reported Respiratory: No symptoms reported Gastrointestinal: No symptoms reported Genitourinary: See HPI Female Genitourinary: No symptoms reported Musculoskeletal: No symptoms reported Skin: No symptoms reported Hematologic/Lymphatic: No symptoms reported Neurological/Psychological: No symptoms reported Physical Exam - Vital signs Vitals: Temp Pulse Resp BP Pulse Ox 97.7 F 70 18 127/80 H 97 11/05/18 13:27 11/05/18 13:27 11/05/18 13:27 11/05/18 13:27 11/05/18 13:27 - General General appearance: Appears well, Alert - HEENT Head: Normocephalic, Atraumatic Eyes: Normal Conjunctiva: Normal Cornea: Normal Extraocular movements intact: Yes Pupils: PERRL - Respiratory Respiratory status: No respiratory distress Chest status: Nontender Breath sounds: Normal Chest palpation: Normal - Cardiovascular Rhythm: Regular Heart sounds: Normal auscultation Murmur: Yes - Abdominal Inspection: Normal Distension: No distension Bowel sounds: Normal Tenderness: Nontender - Back Back: Normal, Nontender - Neurological Neuro grossly intact: Yes Cognition: Normal Orientation: AAOx4 Course - Re-evaluation Re-evalutation: 11/05/18 17:16 Labs within normal limits are nonsignificant with CT abdomen pelvis showing no concerning findings. Patient does have a history of PCOS will proceed with ultrasound to rule out ovarian torsion. No concerning history to suggest vaginal infection 11/05/18 19:35 No evidence of torsion on transvaginal ultrasound. Discussed findings with patient. Will provide anti-inflammatories and return precautions provided. - Vital Signs Vital signs: Temp Pulse Resp BP Pulse Ox 97.9 F 72 17 126/77 H 97 11/05/18 19:50 11/05/18 19:50 11/05/18 19:50 11/05/18 19:50 11/05/18 19:50 - Laboratory Result Diagrams: 11/05/18 15:29 11/05/18 15:29 Laboratory results interpreted by me: 11/05/18 16:29 Urine Ketones 20 H Discharge - Discharge Clinical Impression: Left flank pain Condition: Good Disposition: HOME, SELF-CARE Additional Instructions: If symptoms are not improving or any development of fevers please seek medical reevaluation next 24 to 48 hours Prescriptions: Baclofen [Baclofen 10 mg Tablet] 10 mg PO TID PRN #20 tablet PRN Reason: Referrals: DEJAN BORDEN MD [Primary Care Provider] - Follow up as needed
--- NOTE | 2018-11-05 19:10 | RADIOLOGY REPORT (SQ) ---
EXAM DESCRIPTION: U/S NON OB PEL TV W/DOPPLER COMPLETED DATE/TIME: 11/05/2018 6:45 pm REASON FOR STUDY: Hx of PCOS, r/o torsion vs ruptured cyst/free flui COMPARISON: None. TECHNIQUE: Dynamic and static grayscale images acquired of the pelvis via transvaginal approach and recorded on PACS. Additional selected color Doppler and spectral images recorded. LIMITATIONS: None. FINDINGS: UTERUS: Contour normal. No mass. ENDOMETRIAL STRIPE: Mild heterogeneous echotexture. . CERVIX: 3 mm nabothian cysts. RIGHT OVARY AND DOPPLER: Normal size. No worrisome masses. Normal arterial vascular flow without evid ence for torsion. LEFT OVARY AND DOPPLER: Normal size. No worrisome masses. Normal arterial vascular flow without evide nce for torsion. FREE FLUID: None noted. OTHER: No other significant finding. MEASUREMENTS: UTERUS: 8.5 x 5.4 x 4.3 cm ENDOMETRIAL STRIPE: 1.3 cm RIGHT OVARY: 3.7 x 3.6 x 2.5 cm LEFT OVARY: 3.7 x 2.7 x 2.4 cm IMPRESSION: Mildly heterogeneous endometrium. No evidence for torsion or free fluid. TECHNICAL DOCUMENTATION: JOB ID: [id number] [place]-72 2010 [employer]- All Rights Reserved Reading location - IP/workstation name: [email or web address]
[2018-11-05 19:54] VITALS: BP 126/77
== END 2018-11-05 19:54 | disposition home or self-care (01) ==
LOC: ER 13:23
DX: R10.9 Unspecified abdominal pain (principal); M54.9 Dorsalgia, unspecified; Z88.6 Allergy status to analgesic agent; Z90.49 Acquired absence of other specified parts of digestive tract
CPT/HCPCS: 99284; 96361; 96374; 96375; 36415; 87086; 83690; 85025; 81025; 80053; 81001; 76830; 93976; 74176; J1885; J2405; J7030

== ENCOUNTER 2019-03-25 16:05 | Emergency (ER) | payer OTHER ==
[2019-03-25] MEDS ORDERED: ASPIRIN 81 MG TABLET, CHEWABLE PO ONE (16:41)
--- NOTE | 2019-03-25 16:41 | ER Document Report ---
ED Medical Screen (RME) - General Chief Complaint: High Blood Pressure Stated Complaint: CHEST PAIN Time Seen by Provider: 03/25/19 16:39 Primary Care Provider: DEJAN BORDEN MD [Primary Care Provider] - Follow up as needed Notes: 38 y/o female presents for chest pain and elevated bp. On monitor at home 152/101. Elevated since last night. Pt has not been diagnosed with hypertension. Called PCP and due to chest pain pt told to come to ER for evaluation. I have greeted and performed a rapid initial assessment of this patient. A comprehensive ED assessment and evaluation of the patient, analysis of test r esults and completion of the medical decision making process with be conducted by additional ED providers. TRAVEL OUTSIDE OF THE [place] IN LAST 30 DAYS: No - Related Data Allergies/Adverse Reactions: diazepam [From Valium] Allergy (Mild, Verified 11/05/18 13:24) crazy morphine [Morphine] Allergy (Unknown, Verified 11/05/18 13:24) Chest pain naproxen [Naproxen] Allergy (Unknown, Verified 11/05/18 13:24) vomitting hydromorphone [From Dilaudid] Allergy (Verified 11/05/18 13:24) throat swelling oxycodone [From Percocet] Allergy (Verified 11/05/18 13:24) itch, vomit, throat swelling Past Medical History Pulmonary Medical History: Reports: Hx Bronchitis Neurological Medical History: Reports: Hx Migraine Endocrine Medical History: Reports: Hx Diabetes Mellitus Type 2 - gestational, no meds "diet controlled" Renal/ Medical History: Reports: Hx Ovarian Cysts - Polycystic ovary syndrome. Denies: Hx Peritoneal Dialysis Psychiatric Medical History: Reports: Hx Anxiety, Hx Depression Past Surgical History: Reports: Hx Cholecystectomy, Hx Gynecologic Surgery - D&C x2, laproscopic, Hx Orthopedic Surgery - Arthroscopy right knee - Immunizations Immunizations up to date: Yes Hx Diphtheria, Pertussis, Tetanus Vaccination: Yes - 2005 Physical Exam - Vital signs Vitals: Temp Pulse Resp BP Pulse Ox 98.6 F 99 20 127/106 H 99 03/25/19 16:19 03/25/19 16:19 03/25/19 16:19 03/25/19 16:19 03/25/19 16:19 Course - Vital Signs Vital signs: Temp Pulse Resp BP Pulse Ox 98.6 F 99 20 127/106 H 99 03/25/19 16:19 03/25/19 16:19 03/25/19 16:19 03/25/19 16:19 03/25/19 16:19 Doctor's Discharge - Discharge Referrals: DEJAN BORDEN MD [Primary Care Provider] - Follow up as needed
--- NOTE | 2019-03-25 17:15 | RADIOLOGY REPORT (SQ) ---
EXAM DESCRIPTION: CHEST 2 VIEWS COMPLETED DATE/TIME: 03/25/2019 4:58 pm REASON FOR STUDY: chest pain COMPARISON: Two-view chest 07/13/2016, 05/29/2013 EXAM PARAMETERS: NUMBER OF VIEWS: two views TECHNIQUE: Digital Frontal and Lateral radiographic views of the chest acquired. RADIATION DOSE: NA LIMITATIONS: none FINDINGS: LUNGS AND PLEURA: Chronic scarring in the right middle lobe. Lungs are otherwise well inflated and clear. No pleural effusion. No pneumothorax MEDIASTINUM AND HILAR STRUCTURES: No masses or contour abnormalities. HEART AND VASCULAR STRUCTURES: Heart normal size. No evidence for failure. BONES: No acute findings. HARDWARE: Clips right upper quadrant OTHER: No other significant finding. IMPRESSION: Chronic scarring in the right middle lobe. No acute infiltrates TECHNICAL DOCUMENTATION: JOB ID: [id number] [employer]- All Rights Reserved Reading location - IP/workstation name: [email or web address]
[2019-03-25 18:29] LABS: ABSOLUTE BASOPHILS # (AUTO) 0.1 10^3/uL (0.0-0.2); ABSOLUTE EOSINOPHILS # (AUTO) 0.2 10^3/uL (0.0-0.6); ABSOLUTE LYMPHOCYTES (AUTO) 1.9 10^3/uL (0.5-4.7); ABSOLUTE MONOCYTES (AUTO) 0.5 10^3/uL (0.1-1.4); ABSOLUTE NEUT (AUTO) 6.8 10^3/uL (1.7-8.2); BASOPHILS % (AUTO) 0.6 % (0-2); EOSINOPHILS % (AUTO) 2.5 % (0-6); HEMATOCRIT 42.6 % (36.0-47.0); HEMOGLOBIN 14.3 g/dL (12.0-15.5); LYMPHOCYTES % (AUTO) 20.1 % (13-45); MEAN CORPUSCULAR HEMOGLOBIN 28.2 pg (27.0-33.4); MEAN CORPUSCULAR HGB CONC 33.5 g/dL (32.0-36.0); MEAN CORPUSCULAR VOLUME 84 fl (80-97); MONOCYTES % (AUTO) 4.9 % (3-13); PLATELET COUNT 294 10^3/uL (150-450); RED BLOOD COUNT 5.06 10^6/uL (3.72-5.28); RED CELL DISTRIBUTION WIDTH 13.8 % (11.5-14.0); SEGMENTED NEUTROPHILS % (AUTO) 71.9 % (42-78); TOTAL CELLS COUNTED % (AUTO) 100 %; WHITE BLOOD COUNT 9.5 10^3/uL (4.0-10.5)
[2019-03-25 18:34] LABS: APPEARANCE,URINE SLIGHTLY-CLOUDY; BILIRUBIN,URINE NEGATIVE (NEGATIVE); COLOR,URINE YELLOW; GLUCOSE, URINE NEGATIVE (NEGATIVE); KETONES,URINE NEGATIVE (NEGATIVE); PROTEIN,URINE NEGATIVE (NEGATIVE); URINE SPECIFIC GRAVITY 1.018; UROBILINOGEN,URINE NEGATIVE mg/dL (<2.0)
[2019-03-25 18:48] LABS: ALBUMIN 4.2 g/dL (3.5-5.0); ALKALINE PHOSPHATASE 78 U/L (38-126); ANION GAP 9 (5-19); ASPARTATE AMINO TRANSFERASE 25 U/L (14-36); BILIRUBIN,DIRECT 0.3 mg/dL (0.0-0.4); BILIRUBIN,TOTAL 0.4 mg/dL (0.2-1.3); BLOOD UREA NITROGEN 15 mg/dL (7-20); CALCIUM 9.4 mg/dL (8.4-10.2); CARBON DIOXIDE 27 mmol/L (22-30); CHLORIDE 101 mmol/L (98-107); GLUCOSE 135 mg/dL (75-110); POTASSIUM 4.4 mmol/L (3.6-5.0); TOTAL PROTEIN 7.7 g/dL (6.3-8.2)
--- NOTE | 2019-03-25 20:31 | ER Document Report ---
ED General - General Chief Complaint: Blood Pressure Problem Stated Complaint: CHEST PAIN Time Seen by Provider: 03/25/19 16:39 Primary Care Provider: DEJAN BORDEN MD [Primary Care Provider] - Follow up as needed TRAVEL OUTSIDE OF THE [place] IN LAST 30 DAYS: No - HPI Notes: Patient is a 38-year-old female with a history of anxiety presents to the emergency department for evaluation of chest pain. She states she was at rest last evening watching television when she developed sharp then pressure-like pain in the left side of her chest. It radiates around to her upper back. She states that she felt anxious with this, which made her feel short of breath. She has a history of anxiety attacks, often gets chest pain with her anxiety attacks. This time, however, she checked her blood pressure and found it to be 150/100. She then called her primary care office, who advised her to come to the emergency department for further evaluation. Her pain is been constant since onset. It waxes and wanes in intensity, but has not gone away. - Related Data Allergies/Adverse Reactions: diazepam [From Valium] Allergy (Mild, Verified 11/05/18 13:24) crazy morphine [Morphine] Allergy (Unknown, Verified 11/05/18 13:24) Chest pain naproxen [Naproxen] Allergy (Unknown, Verified 11/05/18 13:24) vomitting hydromorphone [From Dilaudid] Allergy (Verified 11/05/18 13:24) throat swelling oxycodone [From Percocet] Allergy (Verified 11/05/18 13:24) itch, vomit, throat swelling Home Medications: None Past Medical History - General Information source: Patient - Social History Smoking Status: Former Smoker Frequency of alcohol use: None Drug Abuse: None Family History: None Patient has suicidal ideation: No Patient has homicidal ideation: No Pulmonary Medical History: Reports: Hx Bronchitis Neurological Medical History: Reports: Hx Migraine Renal/ Medical History: Reports: Hx Ovarian Cysts - Polycystic ovary syndrome, Other - History of endometriosis. Denies: Hx Peritoneal Dialysis Psychiatric Medical History: Reports: Hx Anxiety, Hx Depression Past Surgical History: Reports: Hx Cholecystectomy, Hx Gynecologic Surgery - D&C x2, laproscopic, Hx Orthopedic Surgery - Arthroscopy right knee - Immunizations Immunizations up to date: Yes Hx Diphtheria, Pertussis, Tetanus Vaccination: Yes - 2005 Review of Systems - Review of Systems Constitutional: No symptoms reported EENT: No symptoms reported Cardiovascular: See HPI Respiratory: See HPI Gastrointestinal: No symptoms reported Genitourinary: No symptoms reported Musculoskeletal: No symptoms reported Skin: No symptoms reported Neurological/Psychological: No symptoms reported Physical Exam - Vital signs Vitals: Temp Pulse Resp BP Pulse Ox 98.6 F 99 20 127/106 H 99 03/25/19 16:19 03/25/19 16:19 03/25/19 16:19 03/25/19 16:19 03/25/19 16:19 - Notes Notes: Vital signs reviewed, please refer to chart. Head is normocephalic, atraumatic. Pupils equal round, reactive to light. Neck is supple without meningismus. Heart is regular rate and rhythm. Lungs are clear to auscultation bilaterally. Abdomen is soft, nontender, normoactive bowel sounds throughout. Extremities without cyanosis, clubbing. Posterior calves are nontender. Peripheral pulses are equal. Skin is warm and dry. Patient is awake, alert, neurological exam is nonfocal. Course - Re-evaluation Re-evalutation: 03/25/19 20:37 Patient presents emergency department for evaluation. She complains of chest pain, which is in fact not a new problem for her. Her blood pressure was e levated when she checked it at home. Her blood pressure is not remarkable here. Her laboratory investigations, EKG, imaging were all unremarkable. Patient does not have any risk factors or pulmonary embolus. Her pain is consistent with anxiety in the past. Certainly, she should continue to keep an eye on her blood pressure, but 1 elevated blood pressure reading does not warrant treatment. Patient voiced understanding to this and she was discharged. She is to return to the ED with worsening. - Vital Signs Vital signs: Temp Pulse Resp BP Pulse Ox 98.2 F 92 20 119/91 H 100 03/25/19 19:08 03/25/19 19:08 03/25/19 16:19 03/25/19 19:08 03/25/19 19:08 - Laboratory Result Diagrams: 03/25/19 18:03 03/25/19 18:03 Laboratory results interpreted by me: 03/25/19 03/25/19 18:03 18:03 Glucose 135 H Leukocyte Esterase Rfl MODERATE H - Diagnostic Test Radiology reviewed: Image reviewed, Reports reviewed Radiology results interpreted by me: 03/25/19 20:39 Chest X-Ray 03/25/19 16:41 IMPRESSION: Chronic scarring in the right middle lobe. No acute infiltrates - EKG Interpretation by Me Additional EKG results interpreted by me: 03/25/19 20:39 Sinus mechanism in the 90s. Normal axis and intervals, no acute ST changes concerning for infarction. No change when compared to prior study. Discharge - Discharge Clinical Impression: Chest pain Qualifiers: Chest pain type: unspecified Qualified Code(s): R07.9 - Chest pain, unspecified Condition: Stable Disposition: HOME, SELF-CARE Instructions: Chest Pain of Unclear Cause ([facility]), High Blood Pressure ([facility]) Additional Instructions: No clear cause was found for your chest pain today. Please follow-up with your primary care provider this week. Return to the emergency department for worsening or new concerning symptoms of any sort. Referrals: DEJAN BORDEN MD [Primary Care Provider] - Follow up as needed
[2019-03-25 20:40] VITALS: BP 129/94
--- NOTE | 2019-03-25 21:53 | EKG REPORT ---
SEVERITY:- BORDERLINE ECG - SINUS RHYTHM PROBABLE LEFT ATRIAL ABNORMALITY BORDERLINE T ABNORMALITIES, DIFFUSE LEADS : Confirmed by: Shiela Camara MD 25-Mar-2019 21:52:16
== END 2019-03-25 20:40 | disposition home or self-care (01) ==
LOC: ER 16:05
DX: R07.9 Chest pain, unspecified (principal); F41.9 Anxiety disorder, unspecified; R06.02 Shortness of breath; Z88.6 Allergy status to analgesic agent; Z90.49 Acquired absence of other specified parts of digestive tract
CPT/HCPCS: 36415; 71046; 80053; 81001; 81025; 84484; 85025; 93005; 93010; 99285

== ENCOUNTER 2019-09-28 09:39 | Emergency (ER) | payer OTHER ==
[2019-09-28] MEDS ORDERED: DIPHENHYDRAMINE HCL 50 MG CAPSULE PO ONE (10:09)
[2019-09-28] MEDS ORDERED: HYDROCODONE/ACETAMINOPHEN 5-325 MG TABLET PO ONE (10:09)
--- NOTE | 2019-09-28 10:12 | ER Document Report ---
ED General - General Chief Complaint: Flank Pain Stated Complaint: FLANK PAIN,PAINFUL URINATION Primary Care Provider: DEJAN BORDEN MD [Primary Care Provider] - Follow up as needed Notes: Patient is a 38-year-old white female with a history of endometriosis, ovarian cysts who presents to the emergency department with a chief complaint of back pain that began at 130 this morning. She states it woke her from her sleep. She states it is a sharp stabbing pain across the entire lower back. States the pain radiates around both flanks to the groin region. States is been associated with some burning with urination. States this feels like prior urinary infections. She denies any history of kidney stones. Admits to some associated nausea. Denies fever or vomiting. No vaginal bleeding or discharge. Status post cholecystectomy. TRAVEL OUTSIDE OF THE [place] IN LAST 30 DAYS: No - Related Data Allergies/Adverse Reactions: diazepam [From Valium] Allergy (Mild, Verified 11/05/18 13:24) crazy morphine [Morphine] Allergy (Unknown, Verified 11/05/18 13:24) Chest pain naproxen [Naproxen] Allergy (Unknown, Verified 11/05/18 13:24) vomitting hydromorphone [From Dilaudid] Allergy (Verified 11/05/18 13:24) throat swelling oxycodone [From Percocet] Allergy (Verified 11/05/18 13:24) itch, vomit, throat swelling Home Medications: zoloft Past Medical History - Social History Smoking Status: Never Smoker Chew tobacco use (# tins/day): No Frequency of alcohol use: None Drug Abuse: None Family History: None Patient has homicidal ideation: No Pulmonary Medical History: Reports: Hx Bronchitis Neurological Medical History: Reports: Hx Migraine Endocrine Medical History: Reports: Hx Diabetes Mellitus Type 2 - gestational, no meds "diet controlled" Renal/ Medical History: Reports: Hx Ovarian Cysts - Polycystic ovary syndrome. Denies: Hx Peritoneal Dialysis Psychiatric Medical History: Reports: Hx Anxiety, Hx Depression Past Surgical History: Reports: Hx Cholecystectomy, Hx Gynecologic Surgery - D&C x2, laproscopic ovarian drilling, Hx Orthopedic Surgery - Arthroscopy right knee - Immunizations Immunizations up to date: Yes Hx Diphtheria, Pertussis, Tetanus Vaccination: Yes - 2005 Review of Systems - Review of Systems Constitutional: denies: Fever EENT: denies: Throat pain Cardiovascular: denies: Chest pain Respiratory: denies: Short of breath Gastrointestinal: Abdominal pain, Nausea. denies: Vomiting Genitourinary: Burning, Dysuria, Flank pain Female Genitourinary: denies: Vaginal discharge Musculoskeletal: Back pain Skin: denies: Change in color Hematologic/Lymphatic: denies: Easy bleeding Neurological/Psychological: denies: Headaches Physical Exam - Vital signs Vitals: Temp Pulse Resp BP Pulse Ox 97.8 F 92 20 131/84 H 100 09/28/19 09:43 09/28/19 09:43 09/28/19 09:43 09/28/19 09:43 09/28/19 09:43 - General General appearance: Appears well, Alert In distress: None - Respiratory Respiratory status: No respiratory distress Chest status: Nontender Breath sounds: Normal Chest palpation: Normal - Cardiovascular Rhythm: Regular Heart sounds: Normal auscultation - Abdominal Inspection: Normal Distension: No distension Bowel sounds: Normal Tenderness: Tender - Suprapubic Organomegaly: No organomegaly - Back Back: CVA tenderness - Right-sided - Neurological Neuro grossly intact: Yes Cognition: Normal Orientation: AAOx4 - Psychological Associated symptoms: Normal affect, Normal mood - Skin Skin Temperature: Warm Skin Moisture: Dry Skin Color: Normal Course - Re-evaluation Re-evalutation: 09/28/19 12:43 CT scan negative for stone or any other acute process. The patient has blood in the urine, there is evidence of bacteria and WBCs but a significant amount of squamous cells are present indicating contaminated sample. She does appear mildly dehydrated with an elevated specific gravity. Her lipase is just minimally elevated. Given her symptoms and evidence of some bacteria in the urine we will treat for UTI despite the contamination of the sample. She will be started on Keflex. I encouraged her to push clear fluids for hydration and recommended a clear liquid diet for the next 24 hours to help hydrate her and reverse the elevated lipase. She verbalized understood and agreed. Counseled her regarding the importance of outpatient follow-up and advised that she return here or any ER immediately with any new, persistent or worsening symptoms. She verbalized understood and agreed. - Vital Signs Vital signs: Temp Pulse Resp BP Pulse Ox 97.8 F 92 20 131/84 H 100 09/28/19 09:43 09/28/19 09:43 09/28/19 09:43 09/28/19 09:43 09/28/19 09:43 - Laboratory Result Diagrams: 09/28/19 10:26 09/28/19 10:26 Laboratory results interpreted by me: 09/28/19 09/28/19 09:56 10:26 Glucose 130 H Lipase 309.1 H Urine Protein 30 H Urine Glucose (UA) 50 H Urine Blood MODERATE H Discharge - Discharge Clinical Impression: Flank pain, Dysuria, Elevated lipase Back pain Qualifiers: Back pain location: low back pain Chronicity: acute Back pain laterality: bilateral Sciatica presence: without sciatica Qualified Code(s): M54.5 - Low back pain Hematuria Qualifiers: Hematuria type: unspecified type Qualified Code(s): R31.9 - Hematuria, unspecified UTI (urinary tract infection) Qualifiers: Urinary tract infection type: site unspecified Hematuria presence: with hematuria Qualified Code(s): N39.0 - Urinary tract infection, site not specified; R31.9 - Hematuria, unspecified Condition: Stable Disposition: HOME, SELF-CARE Instructions: Urinary Tract Infection ([facility]), Low Back Pain ([facility]), Cephalexin ([facility]) Additional Instructions: Follow-up with your regular doctor in 2 to 3 days for reevaluation. Return here or any ER immediately with any new, persistent or worsening symptoms. Prescriptions: Cephalexin Monohydrate [Keflex 500 mg Capsule] 500 mg PO Q6H 7 Days #40 capsule Phenazopyridine HCl [Pyridium 200 mg Tablet] 200 mg PO TID #9 tablet Referrals: DEJAN BORDEN MD [Primary Care Provider] - Follow up as needed
[2019-09-28 10:34] LABS: APPEARANCE,URINE TURBID; BILIRUBIN,URINE NEGATIVE (NEGATIVE); COLOR,URINE YELLOW; GLUCOSE, URINE 50 mg/dL (NEGATIVE); KETONES,URINE NEGATIVE (NEGATIVE); PROTEIN,URINE 30 mg/dL (NEGATIVE); URINE SPECIFIC GRAVITY 1.027; UROBILINOGEN,URINE NEGATIVE mg/dL (<2.0)
[2019-09-28 10:53] LABS: ABSOLUTE BASOPHILS # (AUTO) 0.1 10^3/uL (0.0-0.2); ABSOLUTE EOSINOPHILS # (AUTO) 0.2 10^3/uL (0.0-0.6); ABSOLUTE LYMPHOCYTES (AUTO) 1.7 10^3/uL (0.5-4.7); ABSOLUTE MONOCYTES (AUTO) 0.5 10^3/uL (0.1-1.4); ABSOLUTE NEUT (AUTO) 4.3 10^3/uL (1.7-8.2); BASOPHILS % (AUTO) 0.8 % (0-2); HEMATOCRIT 40.2 % (36.0-47.0); HEMOGLOBIN 13.5 g/dL (12.0-15.5); LYMPHOCYTES % (AUTO) 24.7 % (13-45); MEAN CORPUSCULAR HGB CONC 33.6 g/dL (32.0-36.0); MEAN CORPUSCULAR VOLUME 83 fl (80-97); MONOCYTES % (AUTO) 7.1 % (3-13); PLATELET COUNT 317 10^3/uL (150-450); RED BLOOD COUNT 4.82 10^6/uL (3.72-5.28); RED CELL DISTRIBUTION WIDTH 13.7 % (11.5-14.0); SEGMENTED NEUTROPHILS % (AUTO) 64.4 % (42-78); TOTAL CELLS COUNTED % (AUTO) 100 %; WHITE BLOOD COUNT 6.7 10^3/uL (4.0-10.5)
[2019-09-28 11:15] LABS: ALBUMIN 4.2 g/dL (3.5-5.0); ALKALINE PHOSPHATASE 85 U/L (38-126); ANION GAP 9 (5-19); ASPARTATE AMINO TRANSFERASE 25 U/L (14-36); BILIRUBIN,TOTAL 0.3 mg/dL (0.2-1.3); BLOOD UREA NITROGEN 14 mg/dL (7-20); CALCIUM 9.2 mg/dL (8.4-10.2); CARBON DIOXIDE 23 mmol/L (22-30); CHLORIDE 105 mmol/L (98-107); GLUCOSE 130 mg/dL (75-110); POTASSIUM 4.1 mmol/L (3.6-5.0); TOTAL PROTEIN 7.6 g/dL (6.3-8.2)
--- NOTE | 2019-09-28 12:35 | RADIOLOGY REPORT (SQ) ---
EXAM DESCRIPTION: CT ABD/PELVIS NO ORAL OR IV IMAGES COMPLETED DATE/TIME: 09/28/2019 12:15 pm REASON FOR STUDY: flank pain, hematuria COMPARISON: Multiple, most recent 11/05/2018. TECHNIQUE: CT scan of the abdomen and pelvis performed without intravenous or oral contrast. Images reviewed with lung, soft tissue, and bone windows. Reconstructed coronal and sagittal MPR images revi ewed. All images stored on PACS. All CT scanners at this facility use dose modulation, iterative reconstruction, and/or weight based d osing when appropriate to reduce radiation dose to as low as reasonably achievable (ALARA). [facility]: Dose Right [facility]: CareDose [facility]: Dose Right [facility]: Teradose 4D [facility]: IngagePatient RADIATION DOSE: CT Rad equipment meets quality standard of care and radiation dose reduction techniq ues were employed. CTDIvol: 17.0 mGy. DLP: 952 mGy-cm.mGy. LIMITATIONS: None. FINDINGS: LOWER CHEST: No significant findings. No nodules or infiltrates. NON-CONTRASTED LIVER, SPLEEN, ADRENALS: Evaluation limited by lack of IV contrast. No identified sign ificant masses. PANCREAS: No masses. No peripancreatic inflammatory changes. GALLBLADDER: Surgically absent. RIGHT KIDNEY AND URETER: No suspicious masses. Assessment limited by lack of IV contrast. No signif icant calcifications. Prominent renal pelvis. No stewart hydronephrosis. LEFT KIDNEY AND URETER: No suspicious masses. Assessment limited by lack of IV contrast. No signifi cant calcifications. No hydronephrosis or hydroureter. AORTA AND RETROPERITONEUM: No aneurysm. No retroperitoneal masses or adenopathy. BOWEL AND PERITONEAL CAVITY: No obvious masses or inflammatory changes. No free fluid. APPENDIX: Normal. PELVIS, BLADDER, AND ABDOMINAL WALL:No abnormal masses. No free fluid. Bladder normal. BONES: No significant findings. OTHER: No other significant finding. IMPRESSION: NO SIGNIFICANT OR ACUTE PROCESS IN THE ABDOMEN OR PELVIS. COMMENT: Quality ID # [id number]: Final reports with documentation of one or more dose reduction techniques (e.g., Automated exposure control, adjustment of the mA and/or kV according to patient size, use of iterative reconstruction technique) TECHNICAL DOCUMENTATION: JOB ID: [id number] 2010 [employer]- All Rights Reserved Reading location - IP/workstation name: BUILDING SERVICES [email or web address]
[2019-09-28] MEDS ORDERED: ACETAMINOPHEN 325 MG TABLET PO ONE (12:47)
[2019-09-28 13:25] VITALS: BP 100/67
== END 2019-09-28 13:25 | disposition home or self-care (01) ==
LOC: ER 09:39
DX: N39.0 Urinary tract infection, site not specified (principal); R31.9 Hematuria, unspecified; M54.5 Low back pain; R79.89 Other specified abnormal findings of blood chemistry; R11.0 Nausea; F32.9 Major depressive disorder, single episode, unspecified; F41.9 Anxiety disorder, unspecified; Z79.899 Other long term (current) drug therapy; Z90.49 Acquired absence of other specified parts of digestive tract; Z88.8 Allergy status to other drugs, medicaments and biological substances; Z88.6 Allergy status to analgesic agent; Z88.5 Allergy status to narcotic agent
CPT/HCPCS: 36415; 74176; 80053; 81001; 83690; 84703; 85025; 99284

== ENCOUNTER 2020-02-19 11:11 | Emergency (ER) | payer OTHER ==
--- NOTE | 2020-02-19 12:01 | ER Document Report ---
ED Medical Screen (RME) - General Chief Complaint: Chest Pain Stated Complaint: CHEST PAIN Time Seen by Provider: 02/19/20 11:50 Primary Care Provider: DEJAN BORDEN MD [Primary Care Provider] - Follow up as needed Notes: Patient states she developed left anterior chest pain around 10:00 this morning that radiated to left upper extremity into the left side of the neck and jaw. Patient denies any cough or cold symptoms. Patient denies any nausea or vomiting. Patient states that she does have history of anxiety and panic attacks. Patient denies any previous history of any heart problems. I have greeted and performed a rapid initial assessment of this patient. A comprehensive ED assessment and evaluation of the patient, analysis of test results and completion of the medical decision making process will be conducted by additional ED providers. TRAVEL OUTSIDE OF THE [place] IN LAST 30 DAYS: No - Related Data Allergies/Adverse Reactions: diazepam [From Valium] Allergy (Mild, Verified 02/19/20 11:57) crazy morphine [Morphine] Allergy (Unknown, Verified 02/19/20 11:57) Chest pain naproxen [Naproxen] Allergy (Unknown, Verified 02/19/20 11:57) vomitting hydromorphone [From Dilaudid] Allergy (Verified 02/19/20 11:57) throat swelling oxycodone [From Percocet] Allergy (Verified 02/19/20 11:57) itch, vomit, throat swelling Past Medical History Pulmonary Medical History: Reports: Hx Bronchitis Neurological Medical History: Reports: Hx Migraine Endocrine Medical History: Reports: Hx Diabetes Mellitus Type 2 - gestational, no meds "diet controlled" Renal/ Medical History: Reports: Hx Ovarian Cysts - Polycystic ovary syndrome. Denies: Hx Peritoneal Dialysis Psychiatric Medical History: Reports: Hx Anxiety, Hx Depression Past Surgical History: Reports: Hx Cholecystectomy, Hx Gynecologic Surgery - D&C x2, laproscopic ovarian drilling, Hx Orthopedic Surgery - Arthroscopy right knee - Immunizations Immunizations up to date: Yes Hx Diphtheria, Pertussis, Tetanus Vaccination: Yes - 2005 Physical Exam - Vital signs Vitals: Temp Pulse Resp BP Pulse Ox 98.0 F 87 20 120/80 97 02/19/20 11:20 02/19/20 11:20 02/19/20 11:20 02/19/20 11:20 02/19/20 11:20 - Respiratory Respiratory status: No respiratory distress Chest status: Tender Breath sounds: Normal - Cardiovascular Rhythm: Regular Heart sounds: S1 appreciated, S2 appreciated Course - Vital Signs Vital signs: Temp Pulse Resp BP Pulse Ox 98.0 F 87 20 120/80 97 02/19/20 11:20 02/19/20 11:20 02/19/20 11:20 02/19/20 11:20 02/19/20 11:20 Doctor's Discharge - Discharge Referrals: DEJAN BORDEN MD [Primary Care Provider] - Follow up as needed
[2020-02-19 12:30] LABS: ABSOLUTE BASOPHILS # (AUTO) 0.1 10^3/uL (0.0-0.2); ABSOLUTE EOSINOPHILS # (AUTO) 0.2 10^3/uL (0.0-0.6); ABSOLUTE LYMPHOCYTES (AUTO) 1.8 10^3/uL (0.5-4.7); ABSOLUTE MONOCYTES (AUTO) 0.7 10^3/uL (0.1-1.4); ABSOLUTE NEUT (AUTO) 4.4 10^3/uL (1.7-8.2); BASOPHILS % (AUTO) 0.8 % (0-2); EOSINOPHILS % (AUTO) 2.4 % (0-6); HEMATOCRIT 40.1 % (36.0-47.0); HEMOGLOBIN 13.7 g/dL (12.0-15.5); LYMPHOCYTES % (AUTO) 25.6 % (13-45); MEAN CORPUSCULAR HEMOGLOBIN 28.3 pg (27.0-33.4); MEAN CORPUSCULAR HGB CONC 34.2 g/dL (32.0-36.0); MEAN CORPUSCULAR VOLUME 83 fl (80-97); MONOCYTES % (AUTO) 9.4 % (3-13); PLATELET COUNT 295 10^3/uL (150-450); RED BLOOD COUNT 4.85 10^6/uL (3.72-5.28); RED CELL DISTRIBUTION WIDTH 14.5 % (11.5-14.0); SEGMENTED NEUTROPHILS % (AUTO) 61.8 % (42-78); TOTAL CELLS COUNTED % (AUTO) 100 %; WHITE BLOOD COUNT 7.1 10^3/uL (4.0-10.5)
[2020-02-19 12:47] LABS: ALBUMIN 4.1 g/dL (3.5-5.0); ALKALINE PHOSPHATASE 86 U/L (38-126); ANION GAP 6 (5-19); ASPARTATE AMINO TRANSFERASE 37 U/L (14-36); BILIRUBIN,DIRECT 0.1 mg/dL (0.0-0.4); BILIRUBIN,TOTAL 0.5 mg/dL (0.2-1.3); BLOOD UREA NITROGEN 11 mg/dL (7-20); CALCIUM 9.6 mg/dL (8.4-10.2); CARBON DIOXIDE 31 mmol/L (22-30); CHLORIDE 101 mmol/L (98-107); GLUCOSE 96 mg/dL (75-110); POTASSIUM 3.8 mmol/L (3.6-5.0); TOTAL PROTEIN 7.4 g/dL (6.3-8.2)
--- NOTE | 2020-02-19 12:54 | ER Document Report ---
ED General - General Chief Complaint: Chest Tightness Stated Complaint: CHEST PAIN Time Seen by Provider: 02/19/20 11:50 Primary Care Provider: DEJAN BORDEN MD [Primary Care Provider] - Follow up as needed Notes: 39-year-old female with history of anxiety presents with chest pain. She was laying on the floor sideways with her kids playing normally has some posterior shoulder pain but while laying in the ground developed anterior shoulder pain radiating up her neck into her chest and down her left arm to the fingers with paresthesia. It is now better but still there and is worse when she turns her head to the left. No injuries no bowel or bladder incontinence or leg symptoms. Symptoms scared her then she developed chest pressure and shortness of breath per her normal panic attack. 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 No history of coronary disease PE or thrombosis of any kind. TRAVEL OUTSIDE OF THE [place] IN LAST 30 DAYS: No - Related Data Allergies/Adverse Reactions: diazepam [From Valium] Allergy (Mild, Verified 02/19/20 11:57) crazy morphine [Morphine] Allergy (Unknown, Verified 02/19/20 11:57) Chest pain naproxen [Naproxen] Allergy (Unknown, Verified 02/19/20 11:57) vomitting hydromorphone [From Dilaudid] Allergy (Verified 02/19/20 11:57) throat swelling oxycodone [From Percocet] Allergy (Verified 02/19/20 11:57) itch, vomit, throat swelling Past Medical History - General Information source: Patient - Social History Smoking Status: Never Smoker Chew tobacco use (# tins/day): No Frequency of alcohol use: None Drug Abuse: None Family History: None Pulmonary Medical History: Reports: Hx Bronchitis Neurological Medical History: Reports: Hx Migraine Endocrine Medical History: Reports: Hx Diabetes Mellitus Type 2 - gestational, no meds "diet controlled" Renal/ Medical History: Reports: Hx Ovarian Cysts - Polycystic ovary syndrome. Denies: Hx Peritoneal Dialysis Psychiatric Medical History: Reports: Hx Anxiety, Hx Depression Past Surgical History: Reports: Hx Cholecystectomy, Hx Gynecologic Surgery - D&C x2, laproscopic ovarian drilling, Hx Orthopedic Surgery - Arthroscopy right knee - Immunizations Immunizations up to date: Yes Hx Diphtheria, Pertussis, Tetanus Vaccination: Yes - 2005 Review of Systems - Review of Systems Notes: REVIEW OF SYSTEMS GEN: Denies fever, chills, weight loss ENT: Denies sore throat, nasal discharge, ear pain EYES: Denies blurry vision, eye pain, discharge CV: Denies chest pain, palpitations, edema RESP: Denies cough, shortness of breath, wheezing GI: Denies abdominal pain, nausea, vomiting, diarrhea MSK: Shoulder pain chest pain neck pain pradeep, SKIN: Denies rash, skin lesions LYMPH: Denies swollen glands/lymph nodes NEURO: Paresthesia, denies headache, focal weakness or numbness, dizziness PSYCH: Denies depression, suicidal or homicidal ideation PHYSICAL EXAMINATION General: No acute distress, well-nourished Head: Atraumatic, normocephalic ENT: Mouth normal, oropharynx moist, no exudates or tonsillar enlargement Eyes: Conjunctiva normal, pupils equal, lids normal Neck: No JVD, supple, no guarding CVS: Normal rate, regular rhythm, no murmurs Resp: No resp distress, equal and normal breath sounds bilaterally GI: Nondistended, soft, no tenderness to palpation, no rebound or guarding Ext: No deformities, no edema, normal range of motion in upper and lower ext Back: No CVA or midline TTP Skin: No rash, warm Lymphatic: No lymphadeopathy noted Neuro: Awake, alert. Face symmetric. GCS 15. Strength in the deltoid elbow wrist hand and all fingers on the left. Normal sensation. Pain recreated when turning head to the left and extending. Physical Exam - Vital signs Vitals: Temp Pulse Resp BP Pulse Ox 98.0 F 87 20 120/80 97 02/19/20 11:20 02/19/20 11:20 02/19/20 11:20 02/19/20 11:20 02/19/20 11:20 Course - Re-evaluation Re-evalutation: 02/19/20 13:42 Cervical radiculopathy, normal EKG physical exam doubt acute coronary syndrome dissection PE etc. Chest x-ray EKG negative troponin negative ordered at triage. Will send home with Medrol Dosepak and gabapentin. Given small dose of Ativan given that she is very panicked. Do not think her chest pain shortness of breath reflect angina and is otherwise ruled out I have discussed with the patient there likely diagnosis, aftercare plan, follow-up plans and my usual and customary return precautions. They verbalized understanding of this. - Vital Signs Vital signs: Temp Pulse Resp BP Pulse Ox 98.2 F 78 18 110/83 100 02/19/20 13:25 02/19/20 13:25 02/19/20 13:25 02/19/20 13:25 02/19/20 13:25 - Laboratory Results Result Diagrams: 02/19/20 12:15 02/19/20 12:15 Laboratory Results Interpreted: 02/19/20 02/19/20 12:15 12:15 RDW 14.5 H Carbon Dioxide 31 H AST 37 H ALT 38 H Critical Laboratory Results Reviewed: No Critical Results - Radiology Results Critical Radiology Results Reviewed: No Critical Results Discharge - Discharge Clinical Impression: Cervical radiculopathy Condition: Good Disposition: HOME, SELF-CARE Instructions: Chest Wall Pain ([facility]), Radiculopathy ([facility]) Prescriptions: Gabapentin 300 mg PO DAILY #20 capsule Methylprednisolone [Medrol Dosepack (4 mg/Tab) 21 Tab/Dosepak] 4 mg PO ASDIR PRN #21 tab.ds.pk PRN Reason: Referrals: DEJAN BORDEN MD [Primary Care Provider] - Follow up as needed
[2020-02-19] MEDS ORDERED: LORAZEPAM 1 MG TABLET PO ONE (13:10)
[2020-02-19 13:25] VITALS: BP 110/83
--- NOTE | 2020-02-19 13:43 | RADIOLOGY REPORT (SQ) ---
EXAM DESCRIPTION: CHEST SINGLE VIEW IMAGES COMPLETED DATE/TIME: 02/19/2020 1:09 pm REASON FOR STUDY: cp COMPARISON: 03/25/2019 EXAM PARAMETERS: NUMBER OF VIEWS: One view. TECHNIQUE: Single frontal radiographic view of the chest acquired. RADIATION DOSE: NA LIMITATIONS: None. FINDINGS: LUNGS AND PLEURA: No opacities, masses or pneumothorax. No pleural effusion. MEDIASTINUM AND HILAR STRUCTURES: No masses. Contour normal. HEART AND VASCULAR STRUCTURES: Heart normal in size. Normal vasculature. BONES: No acute findings. HARDWARE: None in the chest. OTHER: No other significant finding. IMPRESSION: NO ACUTE RADIOGRAPHIC FINDING IN THE CHEST. TECHNICAL DOCUMENTATION: JOB ID: [id number] 2010 [employer]- All Rights Reserved Reading location - IP/workstation name: [email or web address]
--- NOTE | 2020-02-19 18:02 | EKG REPORT ---
SEVERITY:- NORMAL ECG - SINUS RHYTHM : Confirmed by: Roshan Kiran MD 19-Feb-2020 18:01:21
== END 2020-02-19 14:00 | disposition home or self-care (01) ==
LOC: ER 11:11
DX: M54.12 Radiculopathy, cervical region (principal); F41.0 Panic disorder [episodic paroxysmal anxiety]; R07.89 Other chest pain; R06.02 Shortness of breath; Z88.8 Allergy status to other drugs, medicaments and biological substances; Z88.6 Allergy status to analgesic agent; Z88.5 Allergy status to narcotic agent
CPT/HCPCS: 36415; 71045; 80053; 84484; 84703; 85025; 93005; 93010; 99285